=== PATIENT | female | born 1980 | race Caucasian/White ===

== ENCOUNTER → 2019-12-25 08:22 | Outpatient (BNVA) | payer OTHER, SELFPAY | PROVIDERS: PCP Family Medicine Geriatric Medicine; Visit Provider Dietitian, Registered | DX: Z76.89 Persons encountering health services in other specified circumstances (principal) ==

== ENCOUNTER → 2020-05-31 08:07 | Outpatient (BNVA) | payer OTHER, SELFPAY | PROVIDERS: PCP Family Medicine Geriatric Medicine; Visit Provider Physician Assistant ==

== ENCOUNTER → 2020-08-30 08:12 | Outpatient (BNVA) | payer OTHER, SELFPAY | PROVIDERS: PCP Family Medicine Geriatric Medicine; Visit Provider Physician Assistant ==

== ENCOUNTER 2020-12-11 07:49 | Outpatient (REF) | payer OTHER, SELFPAY ==
[2020-12-11 07:57] LABS: MANUAL DIFF FLAG NO
[2020-12-11 08:38] LABS: Basophils Percent Auto 0.7 % (0-2); Eosinophils Absolute Auto 0.1 X10*3/uL (0.0-0.4); Hematocrit 40.2 % (37-47); Imm Gran Abs Auto 0.01 X10*3/uL (0.00-0.03); Imm Gran Pct Auto 0.2 % (0.0-0.4); Lymphocytes Absolute Auto 2.9 X10*3/uL (1.2-4.9); Lymphocytes Percent Auto 52.1 % (20-40); Mean Corpuscular HGB Conc 32.3 g/dl (31.0-35.0); Mean Corpuscular Hemoglobin 26.4 pg (27.0-33.0); Mean Corpuscular Volume 81.7 fL (80-98); Mean Platelet Volume 10.3 fL (9.4-12.3); Monocytes Absolute Auto 0.2 X10*3/uL (0.1-1.2); Monocytes Percent Auto 4.3 % (2-11); Neutrophils Absolute Auto 2.3 X10*3/uL (2.0-8.3); Neutrophils Percent Auto 40.7 % (45-73); Platelet Count 257 X10*3/uL (160-400); Red Blood Count 4.92 X10*6/uL (4.20-5.50); Red Cell Distribution Width 13.2 % (11.0-16.0); White Blood Count 5.6 X10*3/uL (4.8-10.8)
[2020-12-11 09:02] LABS: Alanine Aminotransferase 26 U/L (0-31); Alkaline Phosphatase 61 U/L (39-117); Anion Gap 6 (12-20); Aspartate Amino Transferase 14 U/L (5-31); Bilirubin Total 0.7 mg/dL (0.0-1.0); Blood Urea Nitrogen 14 mg/dL (9-16); C Reactive Protein 0.07 mg/dL (< or = 0.50); Carbon Dioxide 30 mmol/L (22-29); Chloride 109 mmol/L (96-108); Cholesterol 189 mg/dL; Estimated Glomerular Filt Rate > 60; Glucose Random 88 mg/dL (60-115); HDL Cholesterol 61 mg/dL; LDL Cholesterol Calculated 115 mg/dl; Potassium 4.1 mmol/L (3.3-5.1); Sodium 141 mmol/L (135-145); Total Protein 6.4 g/dL (6.5-8.0); Triglycerides 65 mg/dL
[2020-12-11 09:17] LABS: Iron 127 mcg/dL (30-160); Percent Iron Saturation 49 % (15-50); Total Iron Binding Capacity 257 mcg/dL (228-428); Unsaturated Iron Binding 130 ug/dL
[2020-12-11 09:20] LABS: Ferritin 312 ng/mL (10-122); TSH reflex Free T4 1.33 uIU/mL (0.32-4.0); Vitamin D 25-OH Total 75.2 ng/mL (>30)
[2020-12-11 09:45] LABS: Estimated Average Glucose 91 mg/dL; Hemoglobin A1c % 4.8 %
[2020-12-11 10:07] LABS: Folate > 20.0 ng/mL (> or = 4.0); Vitamin B12 1296 pg/mL (200-900)
[2020-12-12 16:46] LABS: PTHI 56 pg/mL (14-64)
[2020-12-15 15:47] LABS: Zinc 77 mcg/dL (60-130)
[2020-12-16 12:22] LABS: Vitamin B1 28 nmol/L (8-30)
[2020-12-16 18:57] LABS: Vitamin A 50 mcg/dL (38-98)
== END 2020-12-11 07:50 | disposition home or self-care (01) ==
LOC: HO.LAB 07:49
PROVIDERS: Visit Provider Physician Assistant
DX: E66.3 Overweight (principal); Z98.84 Bariatric surgery status
CPT/HCPCS: 36415; 80053; 80061; 82306; 82607; 82728; 82746; 83036; 83540; 83970; 84425; 84443; 84590; 84630; 85025; 86140

== ENCOUNTER 2024-12-15 09:28 | Outpatient (REF) | payer OTHER, SELFPAY ==
--- OUTSIDE RECORDS SUMMARY | 2024-03-22 09:15 | XMS_ITS ---
Author Organization [facility] [address] Address [address] [place] [address] Care Team Providers Care Lab Support Tech Name Role Phone JULIANNA AUSTIN Unavailable [phone] Christiana Taylor Unavailable [phone] REASON FOR VISIT HTN Medications Medication SIG (Take, Route, Frequency, Duration) Notes Start Date End Date Status NIFEdipine ER 30 MG 1 tablet on an empty stomach Orally Once a day; Duration: 90 days Active Bariatric Multivitamins/Iron - as directed Orally A ctive Calcium 500 MG 1 tablet with meals Orally Twice a day Active Encounters Encounter Location Date Provider Diagnosis [facility] [address] [facility] [address] [place] [address] 03/22/2024 Christiana Taylor Plan Of Treatment Next Appt Details Provider Name:Snow vang, 12/20/2024 03:00:00 PM, [address] [facility], [facility] [address], [address], Provider Name:JULIANNA AUSTIN, 01/16/2025 10:00:00 AM, [address] [facility], [facility] [address], [address], Progress Notes * ZHEN RANDALL ÁNGELADOB: 1980 (43 yo F)Acc No.[id number]:03/22/2024 Progress Notes Patient: ZHEN MCKEON Provider: Bing Taylor PA-C :1980 A ge:43 Y S ex:Female Date:03/22/2024 Address:[address] [place] [address], [address] [place] [address], [place] [address] Subjective: * Chief Complaints: * 1 . HTN. * Medical History: * Medications: T aking NIFEdipine ER 30 MG Tablet Extended Release 24 Hour 1 tablet on an empty stomach Orally Once a day , Taking Bariatric Multivitamins/Iron - Capsule as directed Orally , Taking Calcium 500 MG Tablet 1 tablet with meals Orally Twice a day Objective: * Vitals: Assessment: Plan: * Treatment: * Images: Billing Information: * Visit Code: * Procedure Codes: Care Plan Details* * Electronic signature of Christiana Taylor PA-C on 12/15/2024 at 10:36 AM EDT Sign off status: Pending * Provider: Bing Taylor PA-C Date: 0 03/22/2024 Generated for Laith craft/Dary/Leon on: 1 10:36 AM EDT
--- OUTSIDE RECORDS SUMMARY | 2024-05-11 05:30 | XMS_ITS ---
Author Organization [facility] [address] Address [address] [place] [address] Care Team Providers Care Process Specialist Name Role Phone SHAMARCarloz JULIANNA Unavailable [phone] Medications Medication SIG (Take, Route, Fr equency, Duration) Notes Start Date End Date Status Labetalol HCl 100 MG 1 tablet Orally Twi ce a day; Duration: 30 days Active NIFEdipine ER 90 MG 1 tablet on an empty stomach Orally Once a day; Duration: 90 days Active Encounters Encounter Location Date Provider Diagnosis [facility] [address] [address] 05/11/2024 JULIANNA AUSTIN Essential (primary) hypertension I10 ; Hyperlipidemia, unspecified hyperlipidemia type E78.5 ; Family history of breast cancer Z80.3 ; Other obesity due to excess calories E66.09 ; Body mass index [BMI] 30.0-30.9, adult Z68.30 and Anxiety disorder, unspecified F41.9 Assessments Encounter Date Diagnosis (ICD Code) Assessment Notes Treatment Notes Treatment Clinical Notes Section Notes 05/11/2024 Essential (primary) hypertension (ICD-10 - I10) Acute Concerns/Problem List: 05/11/2024 Continue monitoring blood pressure at home For now can come off of antihypertensives in the interim Will continue monitoring Discussed obesity BMI, discussed weight loss options Currently breast-feeding and at some point would want to come in for weight management formal consultation Will update labs and follow-up later this week Reviewed with patient the importance of medication and treatment plan compliance with BP goal of less then 140/90 per JNC 8 guidelines based on patient's age. This will ensure optimal health outcomes and prevent target organ damage. Made aware that uncontrolled hypertension may be silent and result in a stroke, heart attack, renal failure or even . Discussed the rationale for individualized medication regimen and the effects of their BP. Instructed to seek emergent care if the patient develops a headache, blurry vision, dizziness, chest pain or pressure. Of note, some information is being carried forward from prior records for informational purposes only and is being cited so that efficiency, safety and quality of the patient's care is not compromised This note was prepared using voice recognition software and direct typing Please excuse inadvertent payroll officer or typing errors, or uncorrected word substitutions Although every attempt has been made by the provider to proofread this document, occasional misspellings and typographical errors may still be present Due to the previous pandemic, and the use of personal protective equipment (PPE) This may decrease voice recognition accuracy Inadvertent payroll officer errors may occur 05/11/2024 Hyperlipidemia, unspecified hyperlipidemia type (ICD-10 - E78.5) Acute Concerns/Problem List: 05/11/2024 Continue monitoring blood pressure at home For now can come off of antihypertensives in the interim Will continue monitoring Discussed obesity BMI, discussed weight loss options Currently breast-feeding and at some point would want to come in for weight management formal consultation Will update labs and follow-up later this week Reviewed with patient the importance of medication and treatment plan compliance with BP goal of less then 140/90 per JNC 8 guidelines based on patient's age. This will ensure optimal health outcomes and prevent target organ damage. Made aware that uncontrolled hypertension may be silent and result in a stroke, heart attack, renal failure or even . Discussed the rationale for individualized medication regimen and the effects of their BP. Instructed to seek emergent care if the patient develops a headache, blurry vision, dizziness, chest pain or pressure. Of note, some information is being carried forward from prior records for informational purposes only and is being cited so that efficiency, safety and quality of the patient's care is not compromised This note was prepared using voice recognition software and direct typing Please excuse inadvertent payroll officer or typing errors, or uncorrected word substitutions Although every attempt has been made by the provider to proofread this document, occasional misspellings and typographical errors may still be present Due to the previous pandemic, and the use of personal protective equipment (PPE) This may decrease voice recognition accuracy Inadvertent payroll officer errors may occur 05/11/2024 Family history of breast cancer (ICD-10 - Z80.3) Acute Concerns/Problem List: 05/11/2024 Continue monitoring blood pressure at home For now can come off of antihypertensives in the interim Will continue monitoring Discussed obesity BMI, discussed weight loss options Currently breast-feeding and at some point would want to come in for weight management formal consultation Will update labs and follow-up later this week Reviewed with patient the importance of medication and treatment plan compliance with BP goal of less then 140/90 per JNC 8 guidelines based on patient's age. This will ensure optimal health outcomes and prevent target organ damage. Made aware that uncontrolled hypertension may be silent and result in a stroke, heart attack, renal failure or even . Discussed the rationale for individualized medication regimen and the effects of their BP. Instructed to seek emergent care if the patient develops a headache, blurry vision, dizziness, chest pain or pressure. Of note, some information is being carried forward from prior records for informational purposes only and is being cited so that efficiency, safety and quality of the patient's care is not compromised This note was prepared using voice recognition software and direct typing Please excuse inadvertent payroll officer or typing errors, or uncorrected word substitutions Although every attempt has been made by the provider to proofread this document, occasional misspellings and typographical errors may still be present Due to the previous pandemic, and the use of personal protective equipment (PPE) This may decrease voice recognition accuracy Inadvertent payroll officer errors may occur 05/11/2024 Other obesity due to excess calories (ICD-10 - E66.09) Acute Concerns/Problem List: 05/11/2024 Continue monitoring blood pressure at home For now can come off of antihypertensives in the interim Will continue monitoring Discussed obesity BMI, discussed weight loss options Currently breast-feeding and at some point would want to come in for weight management formal consultation Will update labs and follow-up later this week Reviewed with patient the importance of medication and treatment plan compliance with BP goal of less then 140/90 per JNC 8 guidelines based on patient's age. This will ensure optimal health outcomes and prevent target organ damage. Made aware that uncontrolled hypertension may be silent and result in a stroke, heart attack, renal failure or even . Discussed the rationale for individualized medication regimen and the effects of their BP. Instructed to seek emergent care if the patient develops a headache, blurry vision, dizziness, chest pain or pressure. Of note, some information is being carried forward from prior records for informational purposes only and is being cited so that efficiency, safety and quality of the patient's care is not compromised This note was prepared using voice recognition software and direct typing Please excuse inadvertent payroll officer or typing errors, or uncorrected word substitutions Although every attempt has been made by the provider to proofread this document, occasional misspellings and typographical errors may still be present Due to the previous pandemic, and the use of personal protective equipment (PPE) This may decrease voice recognition accuracy Inadvertent payroll officer errors may occur 05/11/2024 Body mass index [BMI] 30.0-30.9, adult (ICD-10 - Z68.30) Acute Concerns/Problem List: 05/11/2024 Continue monitoring blood pressure at home For now can come off of antihypertensives in the interim Will continue monitoring Discussed obesity BMI, discussed weight loss options Currently breast-feeding and at some point would want to come in for weight management formal consultation Will update labs and follow-up later this week Reviewed with patient the importance of medication and treatment plan compliance with BP goal of less then 140/90 per JNC 8 guidelines based on patient's age. This will ensure optimal health outcomes and prevent target organ damage. Made aware that uncontrolled hypertension may be silent and result in a stroke, heart attack, renal failure or even . Discussed the rationale for individualized medication regimen and the effects of their BP. Instructed to seek emergent care if the patient develops a headache, blurry vision, dizziness, chest pain or pressure. Of note, some information is being carried forward from prior records for informational purposes only and is being cited so that efficiency, safety and quality of the patient's care is not compromised This note was prepared using voice recognition software and direct typing Please excuse inadvertent payroll officer or typing errors, or uncorrected word substitutions Although every attempt has been made by the provider to proofread this document, occasional misspellings and typographical errors may still be present Due to the previous pandemic, and the use of personal protective equipment (PPE) This may decrease voice recognition accuracy Inadvertent payroll officer errors may occur 05/11/2024 Anxiety disorder, unspecified (ICD-10 - F41.9) Acute Concerns/Problem List: 05/11/2024 Continue monitoring blood pressure at home For now can come off of antihypertensives in the interim Will continue monitoring Discussed obesity BMI, discussed weight loss options Currently breast-feeding and at some point would want to come in for weight management formal consultation Will update labs and follow-up later this week Reviewed with patient the importance of medication and treatment plan compliance with BP goal of less then 140/90 per JNC 8 guidelines based on patient's age. This will ensure optimal health outcomes and prevent target organ damage. Made aware that uncontrolled hypertension may be silent and result in a stroke, heart attack, renal failure or even . Discussed the rationale for individualized medication regimen and the effects of their BP. Instructed to seek emergent care if the patient develops a headache, blurry vision, dizziness, chest pain or pressure. Of note, some information is being carried forward from prior records for informational purposes only and is being cited so that efficiency, safety and quality of the patient's care is not compromised This note was prepared using voice recognition software and direct typing Please excuse inadvertent payroll officer or typing errors, or uncorrected word substitutions Although every attempt has been made by the provider to proofread this document, occasional misspellings and typographical errors may still be present Due to the previous pandemic, and the use of personal protective equipment (PPE) This may decrease voice recognition accuracy Inadvertent payroll officer errors may occur Plan Of Treatment Medication Medication Name Sig Start Date Stop Date Notes Labetalol HCl 100 MG 1 tablet Orally Twi ce a day; Duration: 30 days NIFEdipine ER 90 MG 1 tablet on an empty stomach Orally Once a day; Duration: 90 days Next Appt Details Provider Name:Snow vang, 12/20/2024 03:00:00 PM, [address] [facility], [address], [address], Provider Name:JULIANNA AUSTIN, 01/16/2025 10:00:00 AM, [address] [facility], [facility] [address], [place], [address], Progress Notes * PRAKASHZHEN SWANDOB: 1980 (43 yo F)Acc No.[id number]:05/11/2024 Progress Notes Patient: ZHEN MCKEON Provider: Rogers AUSTIN NP :1980 A ge:43 Y S ex:Female Date:05/11/2024 Address:[address] [place] [address] [address], [facility] Subjective: * Chief Complaints: * * HPI: C onstitutional: Patient is here today for a Chronic Disease Management Follow-up Visit Patient seen and examined. Full past medical history, social history, family history, allergies and current medications were reviewed and updated. Acute Concerns/Problem List: 05/11/2024 needs Updated labs, to go later this week She is also recently started on sertraline for anxiety* Her blood pressures have remained predominantly normotensive since then and her headache resolved after delivery. She was recently changed from nifedipine to lisinopril Self checks blood pressures at home gets anywhere in the 130s Occasionally 140 systolic Did express interest in GLP-1 for weight loss however this has to be put on hold since shes still breast feeding daughter currently 9 months old pmX of hypertension, migraines, bartholin cyst in the past requiring drainage, Gastric sleeve may 2019 @34 weeks [place] [facility] [place] with super-imposed pre-eclampsia with severe features based on a persistent headache along with elevated blood pressures and TPCR. She proceeded to have a vaginal delivery complicated by a PPH with EBL 800mL requiring Hemabate, Misoprostol and Tranexamic acid during the delivery. She has remained asymptomatic with light bleeding since then. She is s/p magnesium sulfate for seizure prophylaxis and was titrated to Nifedipine 90mg and Labetalol 200mg BID with good effect. 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 * ROS: A ll Other Systems: Review of Systems (ROS) A ll others negative except those mentioned in HPI. * Medical History: Objective: * Vitals: * Examination: G eneral Examination: GENERAL APPEARANCE: i n no acute distress, well developed, well nourished. H EAD: n ormocephalic, atraumatic. E YES: p upils equal, round, reactive to light and accommodation. E ARS: n ormal. O RAL CAVITY: m [place] moist. T HROAT: c lear. N KASI/THYROID: n kasi supple, full range of motion, no cervical lymphadenopathy. S KIN: n o suspicious lesions, warm and dry. H EART: n o murmurs, regular rate and rhythm, S1, S2 normal. L UNGS: c lear to auscultation bilaterally. A BDOMEN: n ormal, bowel sounds present, soft, nontender, nondistended. E XTREMITIES: n o clubbing, cyanosis, or edema. N EUROLOGIC: n onfocal, motor strength normal upper and lower extremities, sensory exam intact. Assessment: * Assessment: 1. E ssential (primary) hypertension - I10 2 . H yperlipidemia, unspecified hyperlipidemia type - E78.5 3 . F amily history of breast cancer - Z80.3 ? 4 . O ther obesity due to excess calories - E66.09 5 . B [place] mass index [BMI] 30.0-30.9, adult - Z68.30 6 . A nxiety disorder, unspecified - F41.9? Acute Concerns/Problem List: 05/11/2024 Continue monitoring blood pressure at home For now can come off of antihypertensives in the interim Will continue monitoring Discussed obesity BMI, discussed weight loss options Currently breast-feeding and at some point would want to come in for weight management formal consultation Will update labs and follow-up later this week Reviewed with patient the importance of medication and treatment plan compliance with BP goal of less then 140/90 per JNC 8 guidelines based on patient's age. This will ensure optimal health outcomes and prevent target organ damage. Made aware that uncontrolled hypertension may be silent and result in a stroke, heart attack, renal failure or even . Discussed the rationale for individualized medication regimen and the effects of their BP. Instructed to seek emergent care if the patient develops a headache, blurry vision, dizziness, chest pain or pressure. Of note, some information is being carried forward from prior records for informational purposes only and is being cited so that efficiency, safety and quality of the patient's care is not compromised This note was prepared using voice recognition software and direct typing Please excuse inadvertent payroll officer or typing errors, or uncorrected word substitutions Although every attempt has been made by the provider to proofread this document, occasional misspellings and typographical errors may still be present Due to the previous pandemic, and the use of personal protective equipment (PPE) This may decrease voice recognition accuracy Inadvertent payroll officer errors may occur. Plan: * Treatment: * Images: Billing Information: * Visit Code: * Procedure Codes: Care Plan Details* * Electronic signature of INDIRA AUSTIN on 12/15/2024 at 10:36 AM EDT Sign off status: Pending * Provider: Rogers AUSTIN NP Date: 0 05/11/2024 Generated for Laith craft/Dary/Leon on: 10:36 AM EDT History and Physical Notes * HPI (History of Present Illness) Category Sub-Category Detail Notes Category Not es Constitutional Patient is here today for a Chronic Disease Management Follow-up Visit Patient seen and examined. Full past medical history, social history, family history, allergies and current medications were reviewed and updated. Acute Concerns/Problem List: 05/11/2024 needs Updated labs, to go later this week She is also recently started on sertraline for anxiety* Her blood pressures have remained predominantly normotensive since then and her headache resolved after delivery. She was recently changed from nifedipine to lisinopril Self checks blood pressures at home gets anywhere in the 130s Occasionally 140 systolic Did express interest in GLP-1 for weight loss however this has to be put on hold since shes still breast feeding daughter currently 9 months old pmX of hypertension, migraines, bartholin cyst in the past requiring drainage, Gastric sleeve may 2019 @34 weeks [place] [facility] [place] with super-imposed pre-eclampsia with severe features based on a persistent headache along with elevated blood pressures and TPCR. She proceeded to have a vaginal delivery complicated by a PPH with EBL 800mL requiring Hemabate, Misoprostol and Tranexamic acid during the delivery. She has remained asymptomatic with light bleeding since then. She is s/p magnesium sulfate for seizure prophylaxis and was titrated to Nifedipine 90mg and Labetalol 200mg BID with good effect. 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 ETOH , 3 drinks a week no tobacco use no recr THC Examination Category Sub-Category Detail Notes Category Not es General Examination GENERAL APPEARANCE: in no ac [place] distress, well developed, well nourished HEAD: normocephalic, atrau matic EYES: pupils equal, round, reactive to light and accommodation EARS: normal THROAT: clear NECK/THYROID: neck supple, full ra nge of motion, no cervical lymphadenopathy HEART: no murmurs, regular rate and rhythm, S1, S2 normal LUNGS: clear to auscultatio n bilaterally ABDOMEN: normal, bowel sounds present, soft, nontender, nondistended NEUROLOGIC: nonfocal, motor stre ngth normal upper and lower extremities, sensory exam intact SKIN: no suspicious lesion s, warm and dry EXTREMITIES: no clubbing, cyanosi s, or edema ORAL CAVITY: mucosa moist
--- OUTSIDE RECORDS SUMMARY | 2024-12-12 10:00 | XMS_ITS ---
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 Name Role Phone JULIANNA AUSTIN Unavailable [phone] Holly Snow Unavailable [phone] Allergies No Known Allergies REASON FOR VISIT Patient is in office for urgent visit due still experiencing sharp pain and shortness of breathe, wants to be seen., states it is getting worse Medications Medication SIG (Take, Route, Frequency, Duration) Notes Start Date End Date Status Bariatric Multivitamins/Iron - as directed Orally A ctive PARoxetine HCl 20 MG 1 tablet in the mor emilie Orally Once a day Active Calcium 500 MG 1 tablet with meals Orally Twice a day Active Pantoprazole Sodium 40 MG 1 tablet 1/2 t o 1 hour before morning meal Orally Once a day; Duration: 30 days 12/12/2024 Active Labetalol HCl 100 MG 1 tablet Orally Twi ce a day; Duration: 30 days Active Sertraline HCl 25 MG 1 tablet Orally Onc e a day; Duration: 30 days 03/22/2024 Not-Takin g Lisinopril 10 MG 1 tablet Orally Once a day; Duration: 90 days 03/22/2024 Active NIFEdipine ER 90 MG 1 tablet on an empty stomach Orally Once a day; Duration: 90 days Active Social History Tobacco Use: Social History Observation Description Date Details (start date - stop date) Former Smoker NA - NA Tobacco Use/Smoking Question Answer Notes Are you a former smoker How long has it been since you last smoked? 5-10 years Problems Problem Type SNOMED Code ICD Code Onset Dates Problem Status W/U Status Risk Notes Problem Cyst of uterine adnexa (437872018954 00) Adnexal cyst (N94.9) Active confirmed Problem S/P gastric sleeve procedure (Z90.3) Active confirmed Problem Abnormal blood pressure (39857777) Encounter for examination of blood pressure with abnormal findings (Z01.31) Active confirmed Vital Signs Heart Rate 68 /min 12/12/2024 Blood pressure systolic 140 mm Hg 12/13/19 25 Blood pressure diastolic 90 mm Hg 025 Weight 194.1 lbs 12/12/2024 BMI 33.31 kg/m2 12/12/2024 Height 64 in 12/12/2024 Oximetry 99 % 12/12/2024 Encounters Encounter Location Date Provider Diagnosis [facility] [address] [place] [address] 12/12/2024 Snow Normoyle Epigastric pain R10. 13 ; Chronic constipation K59.09 ; Nausea R11.0 ; Adnexal cyst N94.9 ; S/P gastric sleeve procedure Z90.3 and Encounter for examination of blood pressure with abnormal findings Z01.31 Assessments Encounter Date Diagnosis (ICD Code) Assessment Notes Treatment Notes Treatment Clinical Notes Section Notes 12/12/2024 Epigastric pain (ICD-10 - R10.13) Zhen is a 43-year-old female with past medical history of gastric sleeve surgery in 2019 who presents for urgent visit regarding ongoing abdominal pain. CBC, CMP, UA, test, ESR, CRP unremarkable. CT abdomen/pelvis with contrast in the ED 12/07/2024 shows moderate colonic stool retention without obstruction with incidental simple fluid density cyst in the left adnexa measuring up to 3.5 cm. Bariatric surgery was consulted who stated pain is likely due to constipation and was safe for discharge. #Epigastric pain: Today, patient reports worsening pain. She states pain is sharp, burning epigastric pain worse with food, with associated nausea. She has been utilizing omeprazole and Tums daily with no relief. Denies vomiting, hematochezia, hematemesis, weight loss. During our visit, she got a call from [facility] where she previously had gastric sleeve done and was advised to text the portal regarding her symptoms. Advised patient to follow-up with [facility] for likely endoscopy for further evaluation. Differential includes hiatal hernia, ulcer, gastritis, constipation. Informed patient to call the office if symptoms worsen, and to report to the ER if she develops hematemesis or black tarry stool. Plan for pantoprazole 40 mg daily. #Constipation: Continue Colace daily and MiraLAX twice daily. Consider Linzess in the future once abdominal pain improves. #Left adnexal cyst: Found incidentally on CT abdomen/pelvis 12/07/2024. Measuring up to 3.4 cm. Consider transvaginal ultrasound in the future after abdominal pain is addressed. All questions have been answered to patient's satisfaction. Patient verbalized understanding of diagnosis and treatments explained. Advised to call sooner prior to next visit it any questions/concerns arise. Case discussed with collaborating physician Nirav Dinh who reviewed the assessment and plan. Chart, medications, labs, vital signs reviewed. Dictation was accomplished with the use of [employer] voice recognition software, which is prone to medical misidentifications and grammatical errors. This are unintentional and the practitioner does try to identify and correct these, but some could still be present. Please do not hesitate to contact practitioner for clarification. 12/12/2024 Chronic constipation (ICD-10 - K59.09) Zhen is a 43-year-old female with past medical history of gastric sleeve surgery in 2019 who presents for urgent visit regarding ongoing abdominal pain. CBC, CMP, UA, test, ESR, CRP unremarkable. CT abdomen/pelvis with contrast in the ED 12/07/2024 shows moderate colonic stool retention without obstruction with incidental simple fluid density cyst in the left adnexa measuring up to 3.5 cm. Bariatric surgery was consulted who stated pain is likely due to constipation and was safe for discharge. #Epigastric pain: Today, patient reports worsening pain. She states pain is sharp, burning epigastric pain worse with food, with associated nausea. She has been utilizing omeprazole and Tums daily with no relief. Denies vomiting, hematochezia, hematemesis, weight loss. During our visit, she got a call from [facility] where she previously had gastric sleeve done and was advised to text the portal regarding her symptoms. Advised patient to follow-up with [facility] for likely endoscopy for further evaluation. Differential includes hiatal hernia, ulcer, gastritis, constipation. Informed patient to call the office if symptoms worsen, and to report to the ER if she develops hematemesis or black tarry stool. Plan for pantoprazole 40 mg daily. #Constipation: Continue Colace daily and MiraLAX twice daily. Consider Linzess in the future once abdominal pain improves. #Left adnexal cyst: Found incidentally on CT abdomen/pelvis 12/07/2024. Measuring up to 3.4 cm. Consider transvaginal ultrasound in the future after abdominal pain is addressed. All questions have been answered to patient's satisfaction. Patient verbalized understanding of diagnosis and treatments explained. Advised to call sooner prior to next visit it any questions/concerns arise. Case discussed with collaborating physician Nirav Dinh who reviewed the assessment and plan. Chart, medications, labs, vital signs reviewed. Dictation was accomplished with the use of [employer] voice recognition software, which is prone to medical misidentifications and grammatical errors. This are unintentional and the practitioner does try to identify and correct these, but some could still be present. Please do not hesitate to contact practitioner for clarification. 12/12/2024 Nausea (ICD-10 - R11.0) Zhen is a 43-year-old female with past medical history of gastric sleeve surgery in 2019 who presents for urgent visit regarding ongoing abdominal pain. CBC, CMP, UA, test, ESR, CRP unremarkable. CT abdomen/pelvis with contrast in the ED 12/07/2024 shows moderate colonic stool retention without obstruction with incidental simple fluid density cyst in the left adnexa measuring up to 3.5 cm. Bariatric surgery was consulted who stated pain is likely due to constipation and was safe for discharge. #Epigastric pain: Today, patient reports worsening pain. She states pain is sharp, burning epigastric pain worse with food, with associated nausea. She has been utilizing omeprazole and Tums daily with no relief. Denies vomiting, hematochezia, hematemesis, weight loss. During our visit, she got a call from [facility] where she previously had gastric sleeve done and was advised to text the portal regarding her symptoms. Advised patient to follow-up with [facility] for likely endoscopy for further evaluation. Differential includes hiatal hernia, ulcer, gastritis, constipation. Informed patient to call the office if symptoms worsen, and to report to the ER if she develops hematemesis or black tarry stool. Plan for pantoprazole 40 mg daily. #Constipation: Continue Colace daily and MiraLAX twice daily. Consider Linzess in the future once abdominal pain improves. #Left adnexal cyst: Found incidentally on CT abdomen/pelvis 12/07/2024. Measuring up to 3.4 cm. Consider transvaginal ultrasound in the future after abdominal pain is addressed. All questions have been answered to patient's satisfaction. Patient verbalized understanding of diagnosis and treatments explained. Advised to call sooner prior to next visit it any questions/concerns arise. Case discussed with collaborating physician Nirav Dinh who reviewed the assessment and plan. Chart, medications, labs, vital signs reviewed. Dictation was accomplished with the use of [employer] voice recognition software, which is prone to medical misidentifications and grammatical errors. This are unintentional and the practitioner does try to identify and correct these, but some could still be present. Please do not hesitate to contact practitioner for clarification. 12/12/2024 Adnexal cyst (ICD-10 - N94.9) Zhen is a 43-year-old female with past medical history of gastric sleeve surgery in 2019 who presents for urgent visit regarding ongoing abdominal pain. CBC, CMP, UA, test, ESR, CRP unremarkable. CT abdomen/pelvis with contrast in the ED 12/07/2024 shows moderate colonic stool retention without obstruction with incidental simple fluid density cyst in the left adnexa measuring up to 3.5 cm. Bariatric surgery was consulted who stated pain is likely due to constipation and was safe for discharge. #Epigastric pain: Today, patient reports worsening pain. She states pain is sharp, burning epigastric pain worse with food, with associated nausea. She has been utilizing omeprazole and Tums daily with no relief. Denies vomiting, hematochezia, hematemesis, weight loss. During our visit, she got a call from [facility] where she previously had gastric sleeve done and was advised to text the portal regarding her symptoms. Advised patient to follow-up with [facility] for likely endoscopy for further evaluation. Differential includes hiatal hernia, ulcer, gastritis, constipation. Informed patient to call the office if symptoms worsen, and to report to the ER if she develops hematemesis or black tarry stool. Plan for pantoprazole 40 mg daily. #Constipation: Continue Colace daily and MiraLAX twice daily. Consider Linzess in the future once abdominal pain improves. #Left adnexal cyst: Found incidentally on CT abdomen/pelvis 12/07/2024. Measuring up to 3.4 cm. Consider transvaginal ultrasound in the future after abdominal pain is addressed. All questions have been answered to patient's satisfaction. Patient verbalized understanding of diagnosis and treatments explained. Advised to call sooner prior to next visit it any questions/concerns arise. Case discussed with collaborating physician Nirav Dinh who reviewed the assessment and plan. Chart, medications, labs, vital signs reviewed. Dictation was accomplished with the use of [employer] voice recognition software, which is prone to medical misidentifications and grammatical errors. This are unintentional and the practitioner does try to identify and correct these, but some could still be present. Please do not hesitate to contact practitioner for clarification. 12/12/2024 S/P gastric sleeve procedure (ICD-10 - Z90.3) Zhen is a 43-year-old female with past medical history of gastric sleeve surgery in 2019 who presents for urgent visit regarding ongoing abdominal pain. CBC, CMP, UA, test, ESR, CRP unremarkable. CT abdomen/pelvis with contrast in the ED 12/07/2024 shows moderate colonic stool retention without obstruction with incidental simple fluid density cyst in the left adnexa measuring up to 3.5 cm. Bariatric surgery was consulted who stated pain is likely due to constipation and was safe for discharge. #Epigastric pain: Today, patient reports worsening pain. She states pain is sharp, burning epigastric pain worse with food, with associated nausea. She has been utilizing omeprazole and Tums daily with no relief. Denies vomiting, hematochezia, hematemesis, weight loss. During our visit, she got a call from [facility] where she previously had gastric sleeve done and was advised to text the portal regarding her symptoms. Advised patient to follow-up with [facility] for likely endoscopy for further evaluation. Differential includes hiatal hernia, ulcer, gastritis, constipation. Informed patient to call the office if symptoms worsen, and to report to the ER if she develops hematemesis or black tarry stool. Plan for pantoprazole 40 mg daily. #Constipation: Continue Colace daily and MiraLAX twice daily. Consider Linzess in the future once abdominal pain improves. #Left adnexal cyst: Found incidentally on CT abdomen/pelvis 12/07/2024. Measuring up to 3.4 cm. Consider transvaginal ultrasound in the future after abdominal pain is addressed. All questions have been answered to patient's satisfaction. Patient verbalized understanding of diagnosis and treatments explained. Advised to call sooner prior to next visit it any questions/concerns arise. Case discussed with collaborating physician Nirav Dinh who reviewed the assessment and plan. Chart, medications, labs, vital signs reviewed. Dictation was accomplished with the use of [employer] voice recognition software, which is prone to medical misidentifications and grammatical errors. This are unintentional and the practitioner does try to identify and correct these, but some could still be present. Please do not hesitate to contact practitioner for clarification. 12/12/2024 Encounter for examination of blood pressure with abnormal findings (ICD-10 - Z01.31) Zhen is a 43-year-old female with past medical history of gastric sleeve surgery in 2019 who presents for urgent visit regarding ongoing abdominal pain. CBC, CMP, UA, test, ESR, CRP unremarkable. CT abdomen/pelvis with contrast in the ED 12/07/2024 shows moderate colonic stool retention without obstruction with incidental simple fluid density cyst in the left adnexa measuring up to 3.5 cm. Bariatric surgery was consulted who stated pain is likely due to constipation and was safe for discharge. #Epigastric pain: Today, patient reports worsening pain. She states pain is sharp, burning epigastric pain worse with food, with associated nausea. She has been utilizing omeprazole and Tums daily with no relief. Denies vomiting, hematochezia, hematemesis, weight loss. During our visit, she got a call from [facility] where she previously had gastric sleeve done and was advised to text the portal regarding her symptoms. Advised patient to follow-up with [facility] for likely endoscopy for further evaluation. Differential includes hiatal hernia, ulcer, gastritis, constipation. Informed patient to call the office if symptoms worsen, and to report to the ER if she develops hematemesis or black tarry stool. Plan for pantoprazole 40 mg daily. #Constipation: Continue Colace daily and MiraLAX twice daily. Consider Linzess in the future once abdominal pain improves. #Left adnexal cyst: Found incidentally on CT abdomen/pelvis 12/07/2024. Measuring up to 3.4 cm. Consider transvaginal ultrasound in the future after abdominal pain is addressed. All questions have been answered to patient's satisfaction. Patient verbalized understanding of diagnosis and treatments explained. Advised to call sooner prior to next visit it any questions/concerns arise. Case discussed with collaborating physician Nirav Dinh who reviewed the assessment and plan. Chart, medications, labs, vital signs reviewed. Dictation was accomplished with the use of [employer] voice recognition software, which is prone to medical misidentifications and grammatical errors. This are unintentional and the practitioner does try to identify and correct these, but some could still be present. Please do not hesitate to contact practitioner for clarification. Plan Of Treatment Medication Medication Name Sig Start Date Stop Date Notes Pantoprazole Sodium 40 MG 1 tablet 1/2 t o 1 hour before morning meal Orally Once a day; Duration: 30 days 12/12/2024 Next Appt Details Provider Name:Snow vang, 12/20/2024 03:00:00 PM, [address] [facility], [place] [address], [place], [address], Provider Name:JULIANNA AUSTIN, 01/16/2025 10:00:00 AM, [address] [facility], [facility] [address], [place], [address], Progress Notes * ZHEN RANDALL ÁNGELADOB: 1980 (43 yo F)Acc No.[id number]:12/12/2024 Progress Notes Patient: ZHEN MCKEON Provider: Danae Barrera PA-C :1980 A ge:43 Y S ex:Female Date:12/12/2024 Address:[address] [place] [address], [address], [facility] Subjective: * Chief Complaints: * 1 . Patient is in office for urgent visit due still experiencing sharp pain and shortness of breathe, wants to be seen., states it is getting worse. * HPI: C onstitutional: Zhen is a 43-year-old female with past medical history of obesity s/p gastric sleeve surgery in 2019 who presents for urgent visit regarding ongoing abdominal pain. She was seen initially 12/06/2024 due to abdominal pain worse in the left lower quadrant and constipation intermittently for 1 week. During this visit, CBC, CMP, UA, test, ESR and CRP were ordered and overall unremarkable despite UA with several abnormalities likely contamination with an adequate sample. C T abdomen and pelvis was ordered. She then called the office 12/07/2024 due to worsening pain, shortness of breath, and associated lower back pain. She was advised to report to the ED to expedite imaging. She went to the ED 12/07/2024. CT abdomen/pelvis with contrast showed moderate colonic stool retention without obstruction. No urolithiasis, fluid collection, abscess, gallbladder pathology, hydronephrosis. A simple fluid density cyst in the left adnexa measuring up to 3.4 cm was found. Bariatric surgery was consulted which stated pain is likely due to constipation and was safe for discharge. Today, she reports worsening pain. She states she has sharp, burning epigastric pain. She states symptoms are worse with food. She has associated nausea. She has been utilizing omeprazole and Tums daily with no relief. She also has been taking Colace daily and MiraLAX twice daily for constipation, she most recently had a bowel movement today. Reports improvement in constipation but now has sharp burning epigastric pain. Denies vomiting, hematochezia, hematuria, vaginal discharge. * ROS: A ll Other Systems: Review of Systems (ROS) A ll others negative except those mentioned in HPI. * Medical History: H eadache, Hemorrhoids, Anxiety, Depression, Weight gain/loss. * Surgical History: g astric bypass . * Hospitalization/Major Diagno stic Procedure: D enies Past Hospitalization. * Family History: F ather: alive. M other: alive. * Social History: T obacco Use: T obacco Use/Smoking A re you a f ormer smoker, H ow long has it been since you last smoked? 5 -10 years. * Medications: T aking NIFEdipine ER 90 MG Tablet Extended Release 24 Hour 1 tablet on an empty stomach Orally Once a day , Taking Labetalol HCl 100 MG Tablet 1 tablet Orally Twice a day , Taking PARoxetine HCl 20 MG Tablet 1 tablet in the morning Orally Once a day , Taking Bariatric Multivitamins/Iron - Capsule as directed Orally , Taking Calcium 500 MG Tablet 1 tablet with meals Orally Twice a day , Taking Lisinopril 10 MG Tablet 1 tablet Orally Once a day , Not-Taking Sertraline HCl 25 MG Tablet 1 tablet Orally Once a day , Medication List reviewed and reconciled with the patient * Allergies: N .K.D.A. Objective: * Vitals: H R:68/min, BP:140/90mm Hg, Wt:194.1lbs, BMI:33.31Index, Ht: 64 in, Oxygen sat %:99%. * Physical Examination: G eneral: Well appearing, well nourished, age appropriate in no acute distress. Speaking in full, clear sentences. SKIN: Warm, dry intact. No rashes/lesions. HEENT: Normocephalic atraumatic. LUNGS: Clear to auscultation bilaterally, no wheezes, rales or rhonchi CARDIAC: Regular rate and rhythm, no murmurs, rubs or gallops. Abdomen: Soft, nondistended. Hypoactive bowel sounds. Diffusely tender on palpation, increasingly tender in the epigastric region. Negative Phelan sign, negative Rovsing. Extremities: Warm and well perfused. No edema noted. Neuro: CN II-XI grossly intact. Speaking in full sentences. Hearing intact. Assessment: * Assessment: 1. E pigastric pain - R10.13 (Primary) 2 . C hronic constipation - K59.09? 3. N ausea - R11.0 4 . A dnexal cyst - N94.9 ?5. S /P gastric sleeve procedure - Z90.3 6 . E ncounter for examination of blood pressure with abnormal findings - Z01.31 Zhen is a 43-year-old fema le with past medical history of gastric sleeve surgery in 2019 who presents for urgent visit regarding ongoing abdominal pain. CBC, CMP, UA, test, ESR, CRP unremarkable. CT abdomen/pelvis with contrast in the ED 12/07/2024 shows moderate colonic stool retention without obstruction with incidental simple fluid density cyst in the left adnexa measuring up to 3.5 cm. Bariatric surgery was consulted who stated pain is likely due to constipation and was safe for discharge. #Epigastric pain: Today, patient reports worsening pain. She states pain is sharp, burning epigastric pain worse with food, with associated nausea. She has been utilizing omeprazole and Tums daily with no relief. Denies vomiting, hematochezia, hematemesis, weight loss. During our visit, she got a call from [facility] where she previously had gastric sleeve done and was advised to text the portal regarding her symptoms. Advised patient to follow-up with [facility] for likely endoscopy for further evaluation. Differential includes hiatal hernia, ulcer, gastritis, constipation. Informed patient to call the office if symptoms worsen, and to report to the ER if she develops hematemesis or black tarry stool. Plan for pantoprazole 40 mg daily. #Constipation: Continue Colace daily and MiraLAX twice daily. Consider Linzess in the future once abdominal pain improves. #Left adnexal cyst: Found incidentally on CT abdomen/pelvis 12/07/2024. Measuring up to 3.4 cm. Consider transvaginal ultrasound in the future after abdominal pain is addressed. All questions have been answered to patient's satisfaction. Patient verbalized understanding of diagnosis and treatments explained. Advised to call sooner prior to next visit it any questions/concerns arise. Case discussed with collaborating physician Nirav Dinh who reviewed the assessment and plan. Chart, medications, labs, vital signs reviewed. Dictation was accomplished with the use of [employer] voice recognition software, which is prone to medical misidentifications and grammatical errors. This are unintentional and the practitioner does try to identify and correct these, but some could still be present. Please do not hesitate to contact practitioner for clarification. Plan: * Treatment: * Procedure Codes: 3 077F SYST BP = 140 MM HG6 IT, 3080F DIAST BP = 90 MM HG Care Plan: * Problems: * Images: Billing Information: * Visit Code: 18161 Office Visit, Est Pt., Level 4. Modifiers: SA * Procedure Codes: 3077F SYST BP = 140 MM HG6 IT. 3080F DIAST BP = 90 MM HG. Care Plan Details* * Sign off status: Completed true * Provider: Danae Barrera PA-C Date: Generated for Laith craft/Dary/Nicanoritting on: 10:35 AM EDT History and Physical Notes * HPI (History of Present Illness) Category Sub-Category Detail Notes Category Not es Constitutional Zhen is a 43-year-old female with past medical history of obesity s/p gastric sleeve surgery in 2019 who presents for urgent visit regarding ongoing abdominal pain. She was seen initially 12/06/2024 due to abdominal pain worse in the left lower quadrant and constipation intermittently for 1 week. During this visit, CBC, CMP, UA, test, ESR and CRP were ordered and overall unremarkable despite UA with several abnormalities likely contamination with an adequate sample. CT abdomen and pelvis was ordered. She then called the office 12/07/2024 due to worsening pain, shortness of breath, and associated lower back pain. She was advised to report to the ED to expedite imaging. She went to the ED 12/07/2024. CT abdomen/pelvis with contrast showed moderate colonic stool retention without obstruction. No urolithiasis, fluid collection, abscess, gallbladder pathology, hydronephrosis. A simple fluid density cyst in the left adnexa measuring up to 3.4 cm was found. Bariatric surgery was consulted which stated pain is likely due to constipation and was safe for discharge. Today, she reports worsening pain. She states she has sharp, burning epigastric pain. She states symptoms are worse with food. She has associated nausea. She has been utilizing omeprazole and Tums daily with no relief. She also has been taking Colace daily and MiraLAX twice daily for constipation, she most recently had a bowel movement today. Reports improvement in constipation but now has sharp burning epigastric pain. Denies vomiting, hematochezia, hematuria, vaginal discharge Physical Examination Category Sub-Category Detail Notes Section Note s General: Well appearing, well nourished, age appropriate in no acute distress. Speaking in full, clear sentences. SKIN: Warm, dry intact. No rashes/lesions. HEENT: Normocephalic atraumatic. LUNGS: Clear to auscultation bilaterally, no wheezes, rales or rhonchi CARDIAC: Regular rate and rhythm, no murmurs, rubs or gallops. Abdomen: Soft, nondistended. Hypoactive bowel sounds. Diffusely tender on palpation, increasingly tender in the epigastric region. Negative Phelan sign, negative Rovsing. Extremities: Warm and well perfused. No edema noted. Neuro: CN II-XI grossly intact. Speaking in full sentences. Hearing intact.
--- NOTE | ~2024-12-15 | US_ITS ---
EXAMINATION: US ABDOMEN COMPLETE WITH LIVER ELASTOGRAPHY HISTORY: R10.9 - Unspecified abdominal pain TECHNIQUE: Real-time grayscale ultrasound imaging of the abdomen was performed and images were reviewed. COMPARISON: Comparison is made with the prior examination dated 03/13/2019. FINDINGS: Liver: The right lobe of the liver measures 16.5 cm in size. The left lobe of the liver measures 13.2 cm in size. The liver demonstrates normal homogeneous echotexture. No focal mass or intrahepatic biliary ductal dilatation is identified. There is normal hepatopedal flow in the portal vein. Ultrasound elastography of the liver was performed with 10 separate measurements of the liver parenchyma with the patient in the supine position. Measurements were obtained approximately 2 cm below Theo's capsule and perpendicular to the capsule. The median shear wave velocity is 1.09 m/s (previously 1.19 m/s).. The interquartile range/median (IQR/median) is 0.17. Gallbladder and biliary tree: The gallbladder is unremarkable, without evidence of calculi, wall thickening, or pericholecystic fluid. There is no sonographic Phelan sign. The common bile duct is normal in caliber measuring 2 mm. Kidneys: The right kidney measures 11.1 cm in length. The left kidney measures 11.2 cm in length. The kidneys are unremarkable, without evidence of masses, hydronephrosis, or calculi. Pancreas: The pancreatic head, neck, and body are unremarkable. The pancreatic tail is obscured by bowel gas. Spleen: The spleen is normal in size and contour, measuring 9.9 cm in length. Abdominal aorta and inferior vena cava: The visualized portions of the abdominal aorta and inferior vena cava are normal in caliber. There is no free fluid in the abdomen. US/US abdomen comp w elastography IMPRESSION: Hepatomegaly. Otherwise unremarkable abdominal ultrasound. The median shear wave velocity in the liver is 1.09 m/s, corresponding to a median liver stiffness of 3.6 kPa. The IQR/median value is 0.17. This is indicative of a quality data set. Findings are indicative of a normal elastography value with a low likelihood of severe fibrosis or cirrhosis. REFERENCE: Society [employer] in Ultrasound Liver Stiffness Thresholds (2019): LIVER STIFFNESS THRESHOLDS: *Shear wave velocity less than 1.3 m/s (Liver Stiffness equal or less than 5 kPa): High probability of being normal. *Shear wave velocity less than 1.7 m/s (Liver Stiffness less than 9 kPa): In the absence of other known clinical signs, rules out compensated advanced chronic liver disease. *Shear wave velocity between 1.7-2.1 m/s (Liver Stiffness 9-13 kPa): Suggestive of compensated advanced chronic liver disease but need further test for confirmation. *Shear wave velocity between 2.1-2.4 m/s (Liver Stiffness 13-17 kPa): Rules in compensated advanced chronic liver disease. *Shear wave velocity greater than 2.4 m/s (Liver Stiffness over 17 kPa): Suggestive of clinically significant portal hypertension. QUALITY OF DATA SET: *IQR/Median value equal or less than 0.30 implies a quality data set. *IQR/Median value over 0.30 implies a poor quality data set. SIGNIFICANT CHANGE FROM PRIOR EXAM: Significant change if liver stiffness measurement is 10% or greater from prior exam. OTHER CONSIDERATIONS: The stage of liver fibrosis may be overestimated in the setting of acute hepatitis, liver inflammation, elevated liver function tests, hepatic vascular congestion, obstructive cholestasis, non-fasting state, and infiltrative diseases such as amyloidosis and lymphoma. In some patients with NAFLD, the liver stiffness thresholds for compensated advanced chronic liver disease may be lower. In causes other than viral hepatitis and NAFLD, liver stiffness thresholds are not well established. Electronically signed by: Jorje Schultz MD 12/15/2024 10:27 AM EDT
--- OUTSIDE RECORDS SUMMARY | 2024-12-15 10:36 | XMS_ITS | Clinical Summary ---
Author Organization [facility] [address] [facility] Building Address [address] [facility] [place] [address] Phone Care Team Providers Care Kitchen Lead Name Role Phone Vignesh Dinh MD Primary Care Provider [phone] Allergies No known active allergies Medications calcium citrate (CALCITRATE) 1200 mg (250 mg elemental calcium) tablet Take by mouth. Active NIFEdipine CC (ADALAT CC) 60 mg 24 hr tablet 04/07/2022 Act kirit traZODone (DESYREL) 50 mg tablet 1/2-2 qhs 02/09/2019 Active magnesium citrate 100 mg capsule Take by mouth. Active CHOLECALCIFEROL, VITAMIN D3, ORAL Take by mouth. Active multivitamin (MULTIPLE VITAMINS ORAL) Take by mouth. Active vitamin ( Multivitamins) iron fum-folic acid 28-0.8 mg per tablet Take by mouth. 11/01/2010 Active Hospital, Clinic, or Other Facility Administered Medication Ordered Dose Route Frequency Start Date End Date Status levonorgestreL (MIRENA) 21 mcg/24hr (up to 8 yrs) 52 mg IUDIndications:Encounter for insertion of intrauterine contraceptive device (IUD) utrn Once 01/18/2024 Active Active Problems Problem Noted Date Diagnosed Date Bartholin cyst 01/06/2022 Overview (12/13/2023): Last Assessment & Plan: Patient counseled on treatment options. After consent was obtained I&D performed, tolerated well by patient. She was given post-procedure instructions and reviewed s/sx of infection and reasons to call. All questions answered. PTSD (post-traumatic stress disorder) 11/09/2018 Encounters Date Type Department Care Team Description 11/06/2024 10:37 AM EDT - 11/06/2024 11:59 PM EDT [facility] [address] [address] Encounter for screening mammogram for malignant neoplasm of breast Discharge Disposition: Home or Self Care from Last 3 Months Immunizations Immunization Administration Dates Next Due Influenza trivalent, with pr eservative (Fluzone; Afluria) 6mo and older 01/01/2011,12/27/2006 Meningococcal Polysaccharide 05/08/2002 Surgical History Surgery Date Site/Laterality Comments NOSE SURGERY PROCEDURE: DE UNLISTED PROCEDURE NOSE; COMMENT: cauterization OTHER SURGICAL HISTORY PROCEDURE: ---- OTHER ----; COMMENT: neck cyst removed, wrist cyst removed Medical History Medical History Date Comments Ovarian cyst DX:Ovarian cyst Right ovarian cyst 05/04/2013 DX:Right ovar vineet cyst; COMMENT: Seen ER 05/02/13, 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 Family History Medical History Relation Name Comments Diabetes Maternal Grandmother mat aun t Other: dvt Mother Other: embolism Sister cardiac Colon cancer Neg Hx Ovarian cancer Neg Hx Uterine cancer Neg Hx Relation Name Status Comments Brother Alive Father Alive Maternal Grandmother Mother Alive Sister Alive Social History Tobacco Use Types Packs/Day Years Used Date Smoking Tobacco: Former Cigarettes Q uit: 07/27/2006 Smokeless Tobacco: Never Tobacco Cessation:Counseling Given: Not Answered Alcohol Use Standard Drinks/Week Comments Yes 0 (1 standard drink = 0.6 oz pur e alcohol) Comments No Sex and Gender Information Value Date Recorded Sex Assigned at Not on file Legal Sex Female 9:01 PM EST Gender Identity Not on file Sexual Orientation Not on file Obstetrics History * This document contains information received from the source organization and may not represent a complete record from that organization. Para Term AB IAB SAB Ectopic Multiple Livin g Live Births 4 2 2 2 2 Date Outcome GA Total Labor Labor/2nd/3rd Weight Sex Type Anes PTL Jamila A1 A5 Name Clin 2007 Term 40w 0d 3345 g (118 oz) M Vag-S pont None Livin g Brett Delivery Location:[facility] 2011 Term 37w 1d 2948 g (104 oz) F Vag-S pont Local Livin g 9 9 Elyssa Delivery Location:[facility] Comments:induction for PIH Last Filed Vital Signs Vital Sign Reading Time Taken Comments Blood Pressure 125/90 07/06/2024 9:31 AM EDT Pulse 93 07/06/2024 9:31 AM EDT Temperature 37.1 C (98.7 F) 07/05/2024 3:10 AM EDT Respiratory Rate 12 07/06/2024 9:31 AM EDT Oxygen Saturation 100% 07/05/2024 3:10 AM EDT Inhaled Oxygen Concentration - - Weight 85.3 kg (188 lb) 07/06/2024 9:31 AM EDT Height 160 cm (5' 3 ) 07/06/2024 9:31 AM EDT Body Mass Index 33.3 07/06/2024 9:31 AM EDT Plan of Treatment Health Maintenance Due Date Last Done Comments Hepatitis B Vaccines (1 of 3 - 19+ 3-dose series) 2000 HPV Vaccines (1 - 3-dose SCDM series) 2008 Cholesterol Screening (Lipid Panel) 01/31/2022 Hepatitis C Screening 01/31/2022 Social Influencers of Health Screening 01/31/2022 Depression Screening 03/01/2024 COVID-19 Vaccine (2024- season) 2024 02/01/2021 Influenza Vaccine (#1) 2024 , 02/19/2022, 11/25/2020, Additional history exists Hypertension/CHF/CAD Annual BMP Blood Test 12/06/2025 12/06/2024, 07/04/2024 Cervical Cancer Screening: HPV 02/12/2026 02/12/2021 Breast Cancer Screening 11/06/2026 11/07/19 25, 06/10/2023, 01/03/2021, Additional history exists DTaP,Tdap,and Td Vaccines (2 - Td or Tdap) 01/04/2033 01/04/2023 RSV Immunization Adult Patients (1 - 1-dose 75+ series) 2056 Meningococcal ACWY Vaccine Aged Out 05/08/2002 N o longer eligible based on patient's age to complete this topic HIV Screening Completed 12/04/2010 HIB Vaccines Aged Out No longer eligi ble based on patient's age to complete this topic Hepatitis A Vaccines Aged Out No long er eligible based on patient's age to complete this topic IPV Vaccines Aged Out No longer eligi ble based on patient's age to complete this topic MMR Vaccines Aged Out No longer eligi ble based on patient's age to complete this topic Meningococcal B Vaccine Aged Out No l onger eligible based on patient's age to complete this topic Pneumococcal Vaccine: Pediatrics (0 to 5 Years) and At-Risk Patients (6 to 49 Years) Aged Out No longer eligible based on patient's age to complete this topic RSV Immunization Patients Under 20 months Aged Out No longer eligible based on patient's age to complete this topic Varicella Vaccines Aged Out No longer eligible based on patient's age to complete this topic Procedures Procedure Name Priority Date/Time Associated Diagnosis Comments URINALYSIS WITH REFLEX MICROSCOPIC Routine 12/06/2024 9:34 AM EDT Routine general medical examination at a [facility] Abdominal pain, left lower quadrant HCG QUALITATIVE, URINE Routine 9:34 AM EDT Routine general medical examination at a [facility] facility Abdominal pain, left lower quadrant Abdominal pain URINALYSIS WITH REFLEX MICROSCOPIC Routine 12/06/2024 9:34 AM EDT Routine general medical examination at a [facility] facility Abdominal pain, left lower quadrant CBC WITH AUTO DIFFERENTIAL Routine 12/06/2024 9:24 AM EDT Routine general medical examination at a [facility] Abdominal pain, left lower quadrant C REACTIVE PROTEIN, HIGH SENSITIVITY Routine 12/06/2024 9:24 AM EDT Routine general medical examination at a [facility] Abdominal pain, left lower quadrant SEDIMENTATION RATE Routine 12/06/2024 9: 24 AM EDT Routine general medical examination at a [facility] facility Abdominal pain, left lower quadrant COMPREHENSIVE METABOLIC PANEL Routine 12/06/2024 9:24 AM EDT Routine general medical examination at a health care facility Abdominal pain, left lower quadrant CBC AND DIFFERENTIAL Routine 12/06/2024 9:24 AM EDT Routine general medical examination at a health care facility Abdominal pain, left lower quadrant MG MAMMO DIGITAL SCREENING W REI BILAT Routine 11/06/2024 10:55 AM EDT Encounter for screening mammogram for malignant neoplasm of breast HPV Routine 02/12/2021 HIV SCREENING Routine 12/04/2010 from Last 3 Months or Most Recently Relevant to Health Maintenance Results * (ABNORMAL) Urinalysis with reflex microscopic (12/06/2024 9:34 AM EDT) Specific [place] Urine 1.022 1.003 - 1.030 LAB URINALYSIS - AUTOMATED METHOD 12/06/2024 10:[address] [facility] pH, Urine 8.0 5.0 - 8.0 pH LAB URINALYSIS - AUTOMATED METHOD 12/06/2024 10:[address] [facility] Leukocytes, Urine Small(A) Negative LAB URINALYSIS - AUTOMATED METHOD 12/06/2024 10:[address] [facility] Nitrite, Urine Negative Negative LAB URINALYSIS - AUTOMATED METHOD 12/06/2024 10:[address] [facility] Protein, Urine 30(A) <=Trace mg/dL LAB URINALYSIS - AUTOMATED METHOD 12/06/2024 10:[address] [facility] Glucose, Urine Negative Negative mg/dL LAB URINALYSIS - AUTOMATED METHOD 12/06/2024 10:[address] [facility] Ketones, Urine Trace(A) Negative mg/dL LAB URINALYSIS - AUTOMATED METHOD 12/06/2024 10:[address] [facility] Urobilinogen , Urine 1.0 0.2 - 1.0 mg/dL LAB URINALYSIS - AUTOMATED METHOD 12/06/2024 10:[address] [facility] Bilirubin, Urine Negative Negative LAB URINALYSIS - AUTOMATED METHOD 12/06/2024 10:[address] [facility] Blood, Urine Negative Negative LAB URINALYSIS - AUTOMATED METHOD 12/06/2024 10:[address] [facility] RBC, Urine 2.8 0 - 4 /HPF LAB URINALYSIS - AUTOMATED METHOD 12/06/2024 10:[address] [facility] WBC, Urine 16.6(H) 0 - 4 /HPF LAB URINALYSIS - AUTOMATED METHOD 12/06/2024 10:[address] [facility] Squamous Epithelial, Urine >100(H) 0 - 60 /LPF LAB URINALYSIS - AUTOMATED METHOD 12/06/2024 10:[address] [facility] Bacteria, Urine Moderate(A) Negative /HPF LAB URINALYSIS - AUTOMATED METHOD 12/06/2024 10:[address] [facility] Hyaline Casts, Urine 0.4 0 - 3 /LPF LAB URINALYSIS - AUTOMATED METHOD 12/06/2024 10:[address] [facility] Urine Urine specimen obtained by clean catch procedure / Unknown Non-blood Collection / Unknown 12/06/2024 9:34 AM EDT 12/06/2024 10:04 AM EDT us [facility] URINE ORDERABLES Final R esult [facility] [address] [place] [address], * HCG qualitative, urine (12/06/2024 9:34 AM EDT) Preg Test, Ur Negative Negative 12/06/2024 10:22 AM EDT [facility] Urine Urine specimen obtained by clean catch procedure / Unknown Non-blood Collection / Unknown 12/06/2024 9:34 AM EDT 12/06/2024 10:04 AM EDT [facility] URINE ORDERABLES Final R esult [facility] [address] [place] [address], * (ABNORMAL) CBC auto differential (12/06/2024 9:24 AM EDT) WBC 8.3 4.8 - 10.8 K/mcL LAB HEMETOLOGY METHOD 12/06/2024 10:[address] [facility] RBC 5.20(H) 3.80 - 4.80 M/mcL LAB HEMETOLOGY METHOD 12/06/2024 10:[address] [facility] Hemoglobin 13.5 11.5 - 16.0 g/dL LAB HEMETOLOGY METHOD 12/06/2024 10:[address] [facility] Hematocrit 43.3 35.0 - 47.0 % LAB HEMETOLOGY METHOD 12/06/2024 10:[address] [facility] MCV 83.9 79.0 - 98.0 FL LAB HEMETOLOGY METHOD 12/06/2024 10:[address] [facility] MCH 26.2(L) 27.0 - 32.0 pcg LAB HEMETOLOGY METHOD 12/06/2024 10:[address] [facility] MCHC 31.2(L) 32.0 - 37.0 g/dL LAB HEMETOLOGY METHOD 12/06/2024 10:[address] [facility] RDW 14.0 11.0 - 15.0 % LAB HEMETOLOGY METHOD 12/06/2024 10:[address] [facility] Platelets 291 130 - 400 K/mcL LAB HEMETOLOGY METHOD 12/06/2024 10:[address] [facility] MPV 10.0 7.0 - 11.0 FL LAB HEMETOLOGY METHOD 12/06/2024 10:[address] [facility] NRBC 0.0 <1.0 % LAB HEMETOLOGY METHOD 12/06/2024 10:[address] [facility] NRBC Absolute 0.00 <0.10 K/mcL LAB HEMETOLOGY METHOD 12/06/2024 10:[address] [facility] Neutrophils Relative 61.7 % LAB HEMETOLOGY METHOD 12/06/2024 10:[address] [facility] Lymphocytes Relative 30.9 % LAB HEMETOLOGY METHOD 12/06/2024 10:[address] [facility] Monocytes Relative 5.7 % LAB HEMETOLOGY METHOD 12/06/2024 10:[address] [facility] Eosinophils Relative 1.0 % LAB HEMETOLOGY METHOD 12/06/2024 10:[address] [facility] Basophils Relative 0.5 % LAB HEMETOLOGY METHOD 12/06/2024 10:[address] [facility] Immature Granulocytes Relative 0.2 % LAB HEMETOLOGY METHOD 12/06/2024 10:[address] [facility] Neutrophils Absolute 5.11 1.50 - 7.00 K/mcL LAB HEMETOLOGY METHOD 12/06/2024 10:[address] [facility] Lymphocytes Absolute 2.56 1.00 - 5.00 K/mcL LAB HEMETOLOGY METHOD 12/06/2024 10:[address] [facility] Monocytes Absolute 0.47 0.20 - 1.00 K/mcL LAB HEMETOLOGY METHOD 12/06/2024 10:[address] [facility] Eosinophils Absolute 0.08 0.00 - 0.50 K/[facility] LAB HEMETOLOGY METHOD 12/06/2024 10:18 AM EDT [facility] Basophils Absolute 0.04 0.00 - 0.20 K/[facility] LAB HEMETOLOGY METHOD 12/06/2024 10:18 AM EDT [facility] Immature Granulocytes Absolute 0.02 0.00 - 0.03 K/[facility] LAB HEMETOLOGY METHOD 12/06/2024 10:18 AM EDT [facility] Blood Venous blood specimen / Unknown Venipuncture / Unknown 12/06/2024 9:24 AM EDT 12/06/2024 10:05 AM EDT Snow Normoyle PA LAB BLOOD ORDERABLES Final R esult Performing Organization Address City/[facility]/ZIP Co de Phone Number [facility] [address] [place] [address], [place] [phone] * Sedimentation rate (12/06/2024 9:24 AM EDT) Sed Rate 12 0 - 20 mm/hr LAB HEMETOLOGY METHOD 12/06/2024 10:30 AM EDT [facility] Blood Venous blood specimen / Unknown Venipuncture / Unknown 12/06/2024 9:24 AM EDT 12/06/2024 10:05 AM EDT Snow Normoyle PA LAB BLOOD ORDERABLES Final R esult [facility] [address] [place] [address], [place] [phone] * C reactive protein, high sensitivity (12/06/2024 9:24 AM EDT) CRP, High Sensitivity 4.34 mg/L LAB CHEMISTRY METHOD 12/06/2024 11:13 AM EDT [facility] Comment: Cardio CRP Relative Risk Categories Low <1.0 mg/L Average 1.0 - 3.0 mg/L High >3.0 mg/L Levels >10.0 mg/L should be ignored and repeated when the patient is stable and infection or inflammation is ruled out. HRT (estrogens) consistently increase cardio CRP levels. Risk estimates for women on HRT may need to be calibrated downward. Blood Venous blood specimen / Unknown Venipuncture / Unknown 12/06/2024 9:24 AM EDT 12/06/2024 10:04 AM EDT us [facility] BLOOD ORDERABLES Final R esult [facility] [address] [place] [address], [place] [phone] * Comprehensive metabolic panel (12/06/2024 9:24 AM EDT) Sodium 137 133 - 145 mmol/L LAB CHEMISTRY METHOD 12/06/2024 11:[address] [facility] Potassium 4.3 3.5 - 5.5 mmol/L LAB CHEMISTRY METHOD 12/06/2024 11:[address] [facility] Chloride 105 96 - 110 mmol/L LAB CHEMISTRY METHOD 12/06/2024 11:[address] [facility] CO2 26 21 - 32 mmol/L LAB CHEMISTRY METHOD 12/06/2024 11:[address] [facility] Anion Gap 6 3 - 11 LAB CHEMISTRY METHOD 12/06/2024 11:[address] [facility] Glucose 93 70 - 100 mg/dL LAB CHEMISTRY METHOD 12/06/2024 11:[address] [facility] BUN 16 5 - 25 mg/dL LAB CHEMISTRY METHOD 12/06/2024 11:[address] [facility] Creatinine 0.70 0.50 - 1.10 mg/dL LAB CHEMISTRY METHOD 12/06/2024 11:[address] [facility] eGFR 111 >=60 mL/min/1. 73m2 LAB CHEMISTRY METHOD 12/06/2024 11:[address] [facility] Comment:Calculation based on the Chronic Kidney Disease Epidemiology Collaboration (CKD-EPI) equation refit without adjustment for race. BUN/Creatinine Ratio 22.9 LAB CHEMISTRY METHOD 12/06/2024 11:[address] [facility] Calcium 9.4 8.5 - 10.5 mg/dL LAB CHEMISTRY METHOD 12/06/2024 11:[address] [facility] AST (SGOT) 21 10 - 42 unit/L LAB CHEMISTRY METHOD 12/06/2024 11:[address] [facility] ALT (SGPT) 25 10 - 60 unit/L LAB CHEMISTRY METHOD 12/06/2024 11:[address] [facility] Alkaline Phosphatase 85 42 - 121 unit/L LAB CHEMISTRY METHOD 12/06/2024 11:[address] [facility] Total Protein 7.2 6.0 - 8.0 g/dL LAB CHEMISTRY METHOD 12/06/2024 11:[address] [facility] Albumin 3.6 3.2 - 5.0 g/dL LAB CHEMISTRY METHOD 12/06/2024 11:[address] [facility] Total Bilirubin 0.4 0.0 - 1.4 mg/dL LAB CHEMISTRY METHOD 12/06/2024 11:[address] [facility] Blood Venous blood specimen / Unknown Venipuncture / Unknown 12/06/2024 9:24 AM EDT 12/06/2024 10:04 AM EDT [facility] BLOOD ORDERABLES Final R esult [facility] [address] [place] [address], [place] [phone] * MG Mammo Digital Screening w Rei bilat (11/06/2024 10:55 AM EDT) Anatomical Region Laterality Modality Breast Bilateral Mammography 11/06/2024 11:0 3 AM EDT Impressions 11/06/2024 11:08 AM EDT No mammographic evidence of malignancy. A negative mammogram in the presence of a clinically suspicious palpable abnormality does not preclude the possibility of malignancy or alter the indications for biopsy. PQRI CPT II 3342F Code 06204, 95464 PQRI 225 CPT II 7025F TISSUE DENSITY: There are scattered areas of fibroglandular density. (BI-RADS category B) IMPRESSION: Benign. BI-RADS CATEGORY: 2 - BENIGN RECOMMENDATION: Screening bilateral mammogram is recommended in 1 year. Mammo Location: [facility], [address] [place] [address] -------- FINAL REPORT -------- Dictated By: Ab Ibarra Dictated Date: 11/06/2024 11:03 ET Assigned Physician: Ab Ibarra Reviewed and Electronically Signed By: Ab Ibarra Signed Date: 11/06/2024 11:08 ET Workstation ID: [id number] Transcribed By: Self Edit Transcribed Date: 11/06/2024 11:03 ET Narrative 11/06/2024 11:08 AM EDT CLINICAL: The patient is a 43 years Female presenting for routine screening mammography. COMPARISON: 06/10/2023 and most remotely 05/09/2018. TECHNIQUE: Full-field digital mammography of the breasts bilaterally consisting of tomosynthesis in MLO and CC projection is performed in the [employer] 2000-D unit. Computer aided detection utilizing the iCAD system was utilized. FINDINGS: The breasts are again seen to be composed of a combination of fatty and fibroglandular elements. Scattered bilateral calcifications, some of which are dermal, are stable. There is no suspicious cluster of microcalcifications, mass, or area of architectural distortion. There is no skin thickening or nipple retraction. Procedure Note Ab Ibarra MD - 11/06/2024 CLINICAL: The patient is a 43 years Female presenting for routinescreening mammography. COMPARISON: 06/10/2023 and most remotely 05/09/2018. TECHNIQUE: Full-field digital mammography of the breasts bilaterallyconsisting of tomosynthesis in MLO and CC projection is performed in the[employer] 2000-D unit. Computer aided detection utilizing the [employer] was utilized. FINDINGS: The breasts are again seen to be composed of a combination offatty and fibroglandular elements. Scattered bilateral calcifications,some of which are dermal, are stable. There is no suspicious cluster ofmicrocalcifications, mass, or area of architectural distortion. There isno skin thickening or nipple retraction. IMPRESSION: No mammographic evidence of malignancy. A negative mammogram in the presence of a clinically suspicious palpableabnormality does not preclude the possibility of malignancy or alter theindications for biopsy. PQRI CPT II 3342F Code 05485, 92274 PQRI 225 CPT II 7025F TISSUE DENSITY: There are scattered areas of fibroglandular density.(BI-RADS category B) IMPRESSION: Benign. BI-RADS CATEGORY: 2 - BENIGN RECOMMENDATION: Screening bilateral mammogram is recommended in 1 year. Mammo Location: [facility], [address] [place] [address] -------- FINAL REPORT -------- Dictated By: Ab Ibarra Dictated Date: 11/06/2024 11:03 ET Assigned Physician: Ab Ibarra Reviewed and Electronically Signed By: Ab Ibarra Signed Date: 11/06/2024 11:08 ET Workstation ID: [id number] Transcribed By: Self Edit Transcribed Date: 11/06/2024 11:03 ET Sammi Wang CLOTH PAINTER IMG BI PROCEDURES Final Resul t * Cervical Cancer Screening: HPV (02/12/2021) Pathologist [facility] Cervical Cancer Screening: HPV No interpretation with Negative, abstracted Historical Provider HEALTH MAINTENANCE Final Result * HIV Screening (12/04/2010) Pathologist [facility] HIV Screening Abstracted Historical Provider HEALTH MAINTENANCE Final Result from Last 3 Months or Most Recently Relevant to Health Maintenance Insurance [facility] Care Teams Kitchen Lead Relationship Specialty Start Date End Date Vignesh Dinh MD [address] [place] [id number] PCP - General Internal Medicine 07/04/24
--- OUTSIDE RECORDS SUMMARY | 2024-12-15 10:36 | XMS_ITS | Patient Health Record ---
Author Organization [facility] [address] Address [address] [place] [address] Care Team Providers Care Control Operator Name Role Phone JULIANNA AUSTIN Unavailable [phone] Giana Gomez Unavailable [phone] OLIVIA PAN Unavailable [phone] NormSnow george Unavailable [phone] Allergies No Known Allergies Results Component Value Reference Range Notes XR KNEE 4+ VIEWS RIGHT Reviewed date:02/16/2024 08:06:04 AM Interpretation: Performing Lab: Notes/Report: Note See Note [facility], a member of [employer] Patient Name: ANGELA RANDALL Date of : 1980 Reason for Exam: acute pain of right knee Exam Date: 02/08/2024 [id number] EST Report Status: Final Ordering Provider: GIANA GOMEZ PCP: CAITLIN DINH HISTORY: The patient is a 43-year-old female with right knee pain, nontraumatic. FINDINGS: AP, latera l, internal rotation, and external rotation view of the right knee are obtained. The study demonstrates no fracture, dislocation, arthritic change, or other bony abnormality. There is a small suprapatellar joint effusion. IMPRESSION: A small suprapatella r joint effusion is present. Otherwise, normal examination, without bony abnormality. Code 16083 -------- FINAL REPOR T -------- Dictated By: Ab Ibarra Dictated Date: 02/09/2024 08:05 ET Assigned Physician: Ab Ibarra Reviewed and Electronically Signed By: Ab Ibarra Signed Date: 024 08:05 ET Workstation ID: [id number] Transcribed By: Self Edit Transcribed Date: 02/09/2024 08:05 ET URINALYSIS WITH REFLEX MICRO SCOPIC Reviewed date:12/07/2024 01:40:42 PM Interpretation: Performing Lab: Notes/Report: Specific [place] Urine 1.022 1.003-1.030 pH, Urine 8.0 5.0-8.0 pH Leukocytes, Urine Small Negative Nitrite, Urine Negative Negative Protein, Urine 30 <=Trace mg/dL Glucose, Urine Negative Negative mg/dL Ketones, Urine Trace Negative mg/dL Urobilinogen, Urine 1.0 0.2-1.0 mg/dL Bilirubin, Urine Negative Negative Blood, Urine Negative Negative RBC, Urine 2.8 0-4 /HPF WBC, Urine 16.6 0-4 /HPF Squamous Epithelial, Urine >100 0-60 /LPF Bacteria, Urine Moderate Negative /HPF Hyaline Casts, Urine 0.4 0-3 /LPF CBC WITH AUTO DIFFERENTIAL Reviewed date:12/07/2024 01:40:42 PM Interpretation: Performing Lab: Notes/Report: WBC 8.3 4.8-10.8 K/mcL RBC 5.20 3.80-4.80 M/mcL Hemoglobin 13.5 11.5-16.0 g/dL Hematocrit 43.3 35.0-47.0 % MCV 83.9 79.0-98.0 FL MCH 26.2 27.0-32.0 pcg MCHC 31.2 32.0-37.0 g/dL RDW 14.0 11.0-15.0 % Platelets 291 130-400 K/mcL MPV 10.0 7.0-11.0 FL NRBC 0.0 <1.0 % NRBC Absolute 0.00 <0.10 K/mcL Neutrophils Relative 61.7 Lymphocytes Relative 30.9 Monocytes Relative 5.7 Eosinophils Relative 1.0 Basophils Relative 0.5 Immature Granulocytes Relative 0.2 Neutrophils Absolute 5.11 1.50-7.00 K/mcL Lymphocytes Absolute 2.56 1.00-5.00 K/mcL Monocytes Absolute 0.47 0.20-1.00 K/mcL Eosinophils Absolute 0.08 0.00-0.50 K/mcL Basophils Absolute 0.04 0.00-0.20 K/mcL Immature Granulocytes Absolute 0.02 0.00-0.03 K/mcL HCG QUALITATIVE, URINE Reviewed date:12/07/2024 01:40:42 PM Interpretation: Performing Lab: Notes/Report: Preg Test, Ur Negative Negative SEDIMENTATION RATE Reviewed date:12/07/2024 01:40:42 PM Interpretation: Performing Lab: Notes/Report: Sed Rate 12 0-20 mm/hr WET PREP, GENITAL Reviewed date:07/20/2024 01:30:50 PM Interpretation: Performing Lab: Notes/Report: Clue Cells, Wet Prep Negative Negative Yeast, Wet Prep Positive Negative Trichomonas, Wet Prep Indeterminate Negative Refer to Trichomonas antigen. CHLAMYDIA TRACHOMATIS AND NE ISSERIA GONORRHOEAE MOLECULAR STUDY Reviewed date:07/12/2024 09:10:12 AM Interpretation: Performing Lab: Notes/Report: Neisseria gonorrhoeae PCR Negative Negative Chlamydia trachomatis PCR Negative Negative C REACTIVE PROTEIN, HIGH SEN SITIVITY Reviewed date:12/07/2024 01:40:42 PM Interpretation: Performing Lab: Notes/Report: CRP, High Sensitivity 4.34 Cardio CRP Relative Risk Categories Low <1.0 mg/L Average 1.0 - 3.0 mg/L High >3.0 mg/L Levels >10.0 mg/L should be ignored and repeated when the patient is stable and infection or inflammation is ruled out. HRT (estrogens) consistently increase cardio CRP levels. Risk estimates for women on HRT may need to be calibrated downward. COMPREHENSIVE METABOLIC PANE L Reviewed date:12/07/2024 01:40:42 PM Interpretation: Performing Lab: Notes/Report: Sodium 137 133-145 mmol/L Potassium 4.3 3.5-5.5 mmol/L Chloride 105 96-110 mmol/L CO2 26 21-32 mmol/L Anion Gap 6 3-11 Glucose 93 70-100 mg/dL BUN 16 5-25 mg/dL Creatinine 0.70 0.50-1.10 mg/dL eGFR 111 >=60 mL/min/1.73m2 Calculati on based on the Chronic Kidney Disease Epidemiology Collaboration (CKD-EPI) equation refit without adjustment for race. BUN/Creatinine Ratio 22.9 Calcium 9.4 8.5-10.5 mg/dL AST (SGOT) 21 10-42 unit/L ALT (SGPT) 25 10-60 unit/L Alkaline Phosphatase 85 42-121 unit/L Total Protein 7.2 6.0-8.0 g/dL Albumin 3.6 3.2-5.0 g/dL Total Bilirubin 0.4 0.0-1.4 mg/dL Comp. Metabolic Panel (14)-3 Reviewed date:06/08/2024 07:41:04 AM Interpretation: Performing Lab:[facility], [address] [place] [address], Phone - [phone], Director - Alexy Notes/Report: Glucose 87 70-99 mg/dL BUN 15 6-24 mg/dL Creatinine 0.69 0.57-1.00 mg/dL eGFR 111 >59 mL/min/1.73 BUN/Creatinine Ratio 22 9-23 Sodium 142 134-144 mmol/L Potassium 4.3 3.5-5.2 mmol/L Chloride 103 96-106 mmol/L Carbon Dioxide, Total 23 20-29 mmol/L Calcium 9.5 8.7-10.2 mg/dL Protein, Total 7.0 6.0-8.5 g/dL Albumin 4.5 3.9-4.9 g/dL Globulin, Total 2.5 1.5-4.5 g/dL Bilirubin, Total 0.3 0.0-1.2 mg/dL Alkaline Phosphatase 91 44-121 IU/L AST (SGOT) 18 0-40 IU/L ALT (SGPT) 18 0-32 IU/L Lipid Panel-[id number] Reviewed date:06/08/2024 07:41:04 AM Interpretation: Performing Lab:[facility], [address] [place] [address], Phone - [phone], Director - Alexy Notes/Report: Cholesterol, Total 252 100-199 mg/dL Triglycerides 165 0-149 mg/dL HDL Cholesterol 65 >39 mg/dL VLDL Cholesterol Howie 30 5-40 mg/dL LDL Chol Calc ([facility]) 157 0-99 mg/dL Vitamin D, 09-Bodteif-[id number] Reviewed date:06/08/2024 07:41:04 AM Interpretation: Performing Lab:[facility], [address] [facility], Phone - [phone], Director - Wilfredo Notes/Report: Vitamin D, 25-Hydroxy 45.4 30.0-100.0 ng/mL Vitamin D deficiency has been defined by the National City of Medicine and an Endocrine Society practice guideline as a level of serum 25-OH vitamin D less than 20 ng/mL (1,2). The Endocrine Society went on to further define vitamin D insufficiency as a level between 21 and 29 ng/mL (2). 1. IOM (National City of Medicine). 2010. Dietary reference intakes for calcium and D. [place]: The National Academies Press. 2. Celia MF, Kelsie NC, Alba WOLFE, et al. Evaluation, treatment, and prevention of vitamin D deficiency: an Endocrine Society clinical practice guideline. JCEM. 2010; 96(7):1911-30. CBC With Differential/Platel et-[id number] Reviewed date:06/08/2024 07:41:20 AM Interpretation: Performing Lab:[facility], [address] [place] [address], Phone - [phone], Director - Wilfredo Notes/Report: WBC 8.2 3.4-10.8 x10E3/uL RBC 5.53 3.77-5.28 x10E6/uL Hemoglobin 15.0 11.1-15.9 g/dL Hematocrit 47.0 34.0-46.6 % MCV 85 79-97 fL MCH 27.1 26.6-33.0 pg MCHC 31.9 31.5-35.7 g/dL RDW 13.5 11.7-15.4 % Platelets 322 150-450 x10E3/uL Neutrophils 54 Not Estab. % Lymphs 38 Not Estab. % Monocytes 5 Not Estab. % Eos 2 Not Estab. % Basos 1 Not Estab. % Neutrophils (Absolute) 4.4 1.4-7.0 x10E3/uL Lymphs (Absolute) 3.1 0.7-3.1 x10E3/uL Monocytes(Absolute) 0.4 0.1-0.9 x10E3/uL Eos (Absolute) 0.2 0.0-0.4 x10E3/uL Baso (Absolute) 0.1 0.0-0.2 x10E3/uL Immature Granulocytes 0 Not Estab. % Immature Grans (Abs) 0.0 0.0-0.1 x10E3/uL TSH-[id number] Reviewed date:06/08/2024 07:41:04 AM Interpretation: Performing Lab:[facility] [address] [place] [address], Phone - [phone], Director - Wilfredo Notes/Report: TSH 2.040 0.450-4.500 uIU/mL Urinalysis, Complete-[id number] Reviewed date:06/08/2024 07:41:04 AM Interpretation: Performing Lab:[facility] [place], [address] [place] [address], [place], Phone - [phone], Director - Wilfredo Notes/Report: Specific [place] 1.026 1.005-1.030 pH 5.5 5.0-7.5 Urine-Color Yellow Yellow Appearance Clear Clear WBC Esterase Trace Negative Protein Trace Negative/Trace Glucose Negative Negative Ketones Negative Negative Occult Blood Negative Negative Bilirubin Negative Negative Urobilinogen,Semi-Qn 0.2 0.2-1.0 mg/dL Nitrite, Urine Negative Negative Microscopic Examination See below: Microscopic was indicated and was performed. WBC 6-10 0 - 5 /hpf RBC 0-2 0 - 2 /hpf Epithelial Cells (non renal) 0-10 0 - 10 /hpf Casts None seen None seen /lpf Bacteria Few None seen/Few Hemoglobin [id number]-[id number] Reviewed date:06/08/2024 07:41:04 AM Interpretation: Performing Lab:[facility], [address] [place] [address], Phone - [phone], Director - Wilfredo Notes/Report: Hemoglobin A1c 5.6 4.8-5.6 % . Prediabetes: 5.7 - 6.4 Diabetes: >6.4 Glycemic control for adults with diabetes: <7.0 MG MAMMO DIGITAL SCREENING W BIBIANA BILAT Reviewed date:11/06/2024 11:22:00 AM Interpretation: Performing Lab: Notes/Report: Note See Note [facility], a member of [employer] Patient Name: ANGELA RANDALL Date of : 1980 Reason for Exam: Breast cancer screen, avg risk, asymptomatic (Age => 41y) Exam Date: 11/06/2024 [id number] EST Report Status: Final Ordering Provider: JULIANNA AUSTIN PCP: CAITLIN DINH CLINICAL: The ryan t is a 43 years Female presenting for routine screening mammography. COMPARISON: and most remotely 05/09/2018. TECHNIQUE: Full-fiel d digital mammography of the breasts bilaterally consisting of tomosynthesis in MLO and CC projection is performed in the [employer] 2000-D unit. Computer aided detection utilizing the EverPower system was utilized. FINDINGS: The breast s are again seen to be composed of a combination of fatty and fibroglandular elements. Scattered bilateral calcifications, some of which are dermal, are stable. There is no suspicious cluster of microcalcifications, mass, or area of architectural distortion. There is no skin thickening or nipple retraction. IMPRESSION: No mammographic evidence of malignancy. A negative mammogram in the presence of a clinically suspicious palpable abnormality does not preclude the possibility of malignancy or alter the indications for biopsy. PQRI CPT II 3342F Code 31825, 51462 PQRI 225 CPT II 7025F TISSUE DENSITY: Ther e are scattered areas of fibroglandular density. (BI-RADS category B) IMPRESSION: Benign. BI-RADS CATEGORY: 2 - BENIGN RECOMMENDATION: Screening bilateral mammogram is recommended in 1 year. Mammo Location: [facility], [address] [place] [address] -------- FINAL REPOR T -------- Dictated By: Ab Ibarra Dictated Date: 11/06/2024 11:03 ET Assigned Physician: Ab Ibarra Reviewed and Electronically Signed By: Ab Ibarra Signed Date: 025 11:08 ET Workstation ID: [id number] Transcribed By: Self Edit Transcribed Date: 11/06/2024 11:03 ET Reason For Referral Reason Sleep Study - [facility] Diagnosis 1 Obstructive sleep ap hector (G47.33) [facility] [address] Referring Provider First Name JULIANNA Referring Provider Last Name GEOVANNA Referring Provider Speciality Internal M edicine Referred Provider Specialty Pulmonology General Notes Estella Small 10:33:47 AM > Pt given phone [phone] referral faxed to [phone] Clinical Notes Pauline Feliciano 01:19:29 PM > im faxing another referral to sleep medicine services. Pt. called and said she talked to Narda about the home sleep study. She said they charged her and she never received the test in the mail. She said today they charged her for another test. She said she read about people saying they got scammed so she wanted to go somewhere else. Ill get the new referral over to Sleep Medicine Services now. Referral Priority Routine Reason Sleep Medicine Servi linda; obstructive sleep apnea Diagnosis 1 Obstructive sleep ap hector (G47.33) Referral Organization [facility] [address] Referring Provider First Name JULIANNA Referring Provider Last Name GEOVANNA Referring Provider Speciality Internal M edicine Referred Provider Specialty Sleep Medici ne General Notes [address] [place] (p) [phone], (f) [phone] Clinical Notes Pauline Feliciano 02:12:36 PM > faxed form and notesBulmaro Redena 11/16/2024 01:15:22 PM > Seen today at 11:15 am and has an upcoming appt on 11/28 for the sleep study Referral Priority Routine Medications Medication SIG (Take, Route, Frequency, Duration) Notes Start Date End Date Status Sertraline HCl 25 MG 1 tablet Orally Onc e a day; Duration: 30 days 03/22/2024 Not-Takin g Bariatric Multivitamins/Iron - as directed Orally A ctive PARoxetine HCl 20 MG 1 tablet in the mor emilie Orally Once a day Active Lisinopril 10 MG 1 tablet Orally Once a day; Duration: 90 days 03/22/2024 Active Calcium 500 MG 1 tablet with [...] Once a day; Duration: 90 days Active Immunizations Vaccine Route Administration Date Status Comme nts influenza IM Intramuscular 11/25/2020 Administered influenza IM Intramuscular 02/19/2022 Administered Social History Tobacco Use: Social History Observation Description Date Details (start date - stop date) Former Smoker NA - NA Tobacco Use/Smoking Question Answer Notes Are you a former smoker How long has it been since you last smoked? 5-10 years Alcohol Screen (Audit-C) Question Answer Notes Did you have a drink contain ing alcohol in the past year? Yes How often did you have a dri nk containing alcohol in the past year? 2 to 3 times a week (3 points) Points 3 Interpretation Positive Problems Problem Type SNOMED Code ICD Code Onset Dates Problem Status W/U Status Risk Notes Problem Vitamin D deficiency (15241468) Vitamin D deficiency, unspecified (E55.9) Active confirmed Problem Obesity due to excess calories (598003852) Other obesity due to excess calories (E66.09) Active confirmed Problem Anxiety disorder (888112763) Anxiety disorder, unspecified (F41.9) Active confirmed Problem Essential hypertension (28787984) Essential (primary) hypertension (I10) Active confirmed Problem Abnormal blood pressure (19392431) Encounter for examination of blood pressure with abnormal findings (Z01.31) Active confirmed Problem Lipid screening (990412590) Encounter for screening for lipoid disorders (Z13.220) Active confirmed Problem Chronic idiopathic constipation (95821550) Chronic idiopathic constipation (K59.04) Active confirmed Problem Hyperlipidaemia (26650401) Hyperlipidemia, unspecified hyperlipidemia type (E78.5) Active confirmed Problem Adult health examination (658933951) Adult general medical exam (Z00.00) Active confirmed Problem Screening for malignant neoplasm of breast (545503217) Breast cancer screening by mammogram (Z12.31) Active confirmed Problem Family history of breast cancer (387647066) Family history of breast cancer (Z80.3) Active confirmed Problem Diabetes mellitus screening (565012843) Diabetes mellitus screening (Z13.1) Active confirmed Problem Obstructive sleep apnea (19474934) Obstructive sleep apnea (G47.33) Active confirmed Problem Migraine with aura (1505805) Migraine with aura and without status migrainosus, not intractable (G43.109) Active confirmed Problem BMI 30+ - obesity (754264590) BMI 32.0-32.9,adult (Z68.32) Active confirmed Problem Acute stress disorder (61491576) Stress reaction (F43.0) Active confirmed Problem Body mass index 30+ - obesity (870158711) Body mass index [BMI] 30.0-30.9, adult (Z68.30) Active confirmed Problem Avitaminosis D (92727414) Avitaminosis D (E55.9) Active confirmed Problem Pain in thoracic spine (369831571) Lower thoracic back pain (M54.6) Active confirmed Problem Endocrine/metaboli c screening (352113183) Encounter for screening for endocrine disorder (Z13.29) Active confirmed Problem Tension headache (159538201) Tension headache (G44.209) Active confirmed Problem S/P gastric sleeve procedure (Z90.3) Active confirmed Problem Cyst of uterine adnexa (09784312823155) Adnexal cyst (N94.9) Active confirmed Vital Signs Heart Rate 68 /min 12/12/2024 Blood pressure diastolic 90 mm Hg 12/12/2024 Oximetry 99 % 12/12/2024 Height 64 in 12/12/2024 Blood pressure systolic 140 mm Hg 12/12/2024 Weight 194.1 lbs 12/12/2024 BMI 33.31 kg/m2 12/12/2024 Encounters Encounter Location Date Provider Diagnosis [facility] [address] [address] 01/06/2024 OLIVIA PAN Acute sore throat J0 2.9 ; Acute cough R05.1 ; Chest congestion R09.89 and Tension headache G44.209 [facility] [address] [address] 02/08/2024 Giana Svrcek Essential (primary) hypertension I10 and Acute pain of right knee M25.561 [facility] [address] [address] 03/22/2024 Giana Svrcek Essential (primary) hypertension I10 ; Anxiety disorder, unspecified F41.9 and Depression, unspecified F32.A [facility] [address] [address] 06/12/2024 JULIANNA BORHOT Essential (primary) hypertension I10 ; Hyperlipidemia, unspecified hyperlipidemia type E78.5 ; Family history of breast cancer Z80.3 ; Other obesity due to excess calories E66.09 ; Body mass index [BMI] 30.0-30.9, adult Z68.30 ; Anxiety disorder, unspecified F41.9 and Breast cancer screening by mammogram Z12.31 [facility] [address] [address] 10/16/2024 JULIANNA BORHOT Essential (primary) hypertension I10 ; Annual physical exam Z00.00 ; Hyperlipidemia, unspecified hyperlipidemia type E78.5 ; Family history of breast cancer Z80.3 ; Other obesity due to excess calories E66.09 ; BMI 32.0-32.9,adult Z68.32 ; Anxiety disorder, unspecified F41.9 and Encounter for examination of blood pressure without abnormal findings Z01.30 [facility] [address] 12/06/2024 Snow Normoyle LLQ abdominal pain R10.32 ; Chronic idiopathic constipation K59.04 ; Nausea R11.0 and Encounter for examination of blood pressure without abnormal findings Z01.30 [facility] [address] 12/12/2024 Snow Normoyle Epigastric pain R10. 13 ; Chronic constipation K59.09 ; Nausea R11.0 ; Adnexal cyst N94.9 ; S/P gastric sleeve procedure Z90.3 and Encounter for examination of blood pressure with abnormal findings Z01.31 [facility] [address] 01/06/2024 JULIANNA BORHOT [facility] [address] 01/06/2024 JULIANNA BORHOT [facility] [address] 02/08/2024 [address]UL[address]NA [address]HOT [facility] [address] [place] [address] 02/11/2024 Giana Svrcek [facility] [address] 10/16/2024 JULIANNA BORHOT [facility] [address] [address] 10/26/2024 JULIANNA BORHOT Essential (primary) hypertension I10 [facility] [address] 12/05/2024 JULIANNA BORHOT [facility] [address] [facility] [address] [address] 12/07/2024 Snow Normoyle [facility] [address] [address] 12/12/2024 JULIANNA IBANEZCarloz Assessments Encounter Date Diagnosis (ICD Code) Assessment Notes Treatment Notes Treatment Clinical Notes Section Notes 01/06/2024 Acute cough (ICD-10 - R05.1) Angela is a 43-year-old female with history of headache, hemorrhoids, anxiety, depression who presents the office today for urgent care visit for flulike symptoms including sore throat, hoarse voice, cough, chest congestion, and headache that began on Wednesday. Reports recent sick contacts including her son who is sick 3 weeks ago with sore throat and cough as well as her partner who also became sick with similar symptoms. Reports some associated nausea but denies fever, chills, chest pain, difficulty breathing, vomiting, diarrhea, dizziness, or weakness. Can tolerate food and drink. Has been using Tylenol, throat lozenges, cough drops, and drinking warm water with honey. On physical exam patient is well-appearing and in no acute distress. Cardiopulmonary exam unremarkable. Small right-sided lymphadenopathy appreciated in submaxillary region. Oropharynx is nonerythematous and nonedematous without tonsillar hypertrophy or exudates. Viral swab obtained in the office which resulted negative for flu, COVID, and RSV. Patient updated to these results. Discussed that symptoms likely due to viral infection. Discussed use of ibuprofen for sore throat and use of medications like Robitussin to help manage cough and chest congestion. Advised the patient should avoid NyQuil or DayQuil at this time as she is breast-feeding. She should continue conservative measures including rest, continuing good nutrition, increasing fluid intake, using throat lozenges or cough drops, and having warm water or tea with honey. Advised that if symptoms do not improve the rest of the week and by the end of the weekend may consider antibiotics. May consider chest x-ray if she develops shortness of breath. Advised to return to the office sooner if she does not develop resolution of symptoms. Educated to go to the emergency department if she develops fever unable to be broken by antipyretic medications, chest pain, difficulty breathing, intractable vomiting or diarrhea, dizziness, or weakness. Patient demonstrates understanding. All patient questions answered at this time. All questions have been answered to patient's satisfaction. Patient verbalized understanding of diagnosis and treatments explained. Advised to call sooner prior to next visit it any questions/concerns arise. Case discussed with collaborating physician Nirav Dinh who reviewed the assessment and plan. Chart, medications, labs, vital signs reviewed. Dictation was accomplished with the use of [employer] voice recognition software, which is prone to medical misidentifications and grammatical errors. This are unintentional and the practitioner does try to identify and correct these, but some could still be present. Please do not hesitate to contact practitioner for clarification. 01/06/2024 Acute sore throat (ICD-10 - J02.9) Angela is a 43-year-old female with history of headache, hemorrhoids, anxiety, depression who presents the office today for urgent care visit for flulike symptoms including sore throat, hoarse voice, cough, chest congestion, and headache that began on Wednesday. Reports recent sick contacts including her son who is sick 3 weeks ago with sore throat and cough as well as her partner who also became sick with similar symptoms. Reports some associated nausea but denies fever, chills, chest pain, difficulty breathing, vomiting, diarrhea, dizziness, or weakness. Can tolerate food and drink. Has been using Tylenol, throat lozenges, cough drops, and drinking warm water with honey. On physical exam patient is well-appearing and in no acute distress. Cardiopulmonary exam unremarkable. Small right-sided lymphadenopathy appreciated in submaxillary region. Oropharynx is nonerythematous and nonedematous without tonsillar hypertrophy or exudates. Viral swab obtained in the office which resulted negative for flu, COVID, and RSV. Patient updated to these results. Discussed that symptoms likely due to viral infection. Discussed use of ibuprofen for sore throat and use of medications like Robitussin to help manage cough and chest congestion. Advised the patient should avoid NyQuil or DayQuil at this time as she is breast-feeding. She should continue conservative measures including rest, continuing good nutrition, increasing fluid intake, using throat lozenges or cough drops, and having warm water or tea with honey. Advised that if symptoms do not improve the rest of the week and by the end of the weekend may consider antibiotics. May consider chest x-ray if she develops shortness of breath. Advised to return to the office sooner if she does not develop resolution of symptoms. Educated to go to the emergency department if she develops fever unable to be broken by antipyretic medications, chest pain, difficulty breathing, intractable vomiting or diarrhea, dizziness, or weakness. Patient demonstrates understanding. All patient questions answered at this time. All questions have been answered to patient's satisfaction. Patient verbalized understanding of diagnosis and treatments explained. Advised to call sooner prior to next visit it any questions/concerns arise. Case discussed with collaborating physician Nirav Dihn who reviewed the assessment and plan. Chart, medications, labs, vital signs reviewed. Dictation was accomplished with the use of [employer] voice recognition software, which is prone to medical misidentifications and grammatical errors. This are unintentional and the practitioner does try to identify and correct these, but some could still be present. Please do not hesitate to contact practitioner for clarification. 02/08/2024 Essential (primary) hypertension (ICD-10 - I10) #Hypertension. Blood pressure quite high in the office. She has been off of her blood pressure medications for several months. Will restart nifedipine at lower dose of 30 mg. Follow-up in 4 weeks for recheck. She will also monitor at home. #Right knee pain. Right knee pain x 3 weeks without any known injury. She does have swelling to the posterior right knee. will get x-ray to further evaluate. Could consider ultrasound if needed. Discussed potential effusion/Hsu's cyst. Discussed rest ice elevation and ibuprofen 600 mg with food every 8 hours for 3 to 5 days. Follow-up if no improvement or with any new or worsening symptoms. Case discussed with collaborating physician Carloz Dinh who reviewed the assessment and plan. Chart, medications, labs, vital signs reviewed. Dictation was accomplished with the use of [employer] voice recognition software, prone to medical misidentifications and grammatical errors. This is unintentional and the practitioner does try to identify and correct these, but some could still be present. Please do not hesitate to contact practitioner for clarification. All questions answered to patients satisfaction. Patient verbalized understanding of diagnosis and treatments explained. To call sooner prior to next visit it any questions/concerns arise. 02/08/2024 Acute pain of right knee (ICD-10 - M25.561) #Hypertension. Blood pressure quite high in the office. She has been off of her blood pressure medications for several months. Will restart nifedipine at lower dose of 30 mg. Follow-up in 4 weeks for recheck. She will also monitor at home. #Right knee pain. Right knee pain x 3 weeks without any known injury. She does have swelling to the posterior right knee. will get x-ray to further evaluate. Could consider ultrasound if needed. Discussed potential effusion/Hsu's cyst. Discussed rest ice elevation and ibuprofen 600 mg with food every 8 hours for 3 to 5 days. Follow-up if no improvement or with any new or worsening symptoms. Case discussed with collaborating physician Carloz Dinh who reviewed the assessment and plan. Chart, medications, labs, vital signs reviewed. Dictation was accomplished with the use of [employer] voice recognition software, prone to medical misidentifications and grammatical errors. This is unintentional and the practitioner does try to identify and correct these, but some could still be present. Please do not hesitate to contact practitioner for clarification. All questions answered to patients satisfaction. Patient verbalized understanding of diagnosis and treatments explained. To call sooner prior to next visit it any questions/concerns arise. 03/22/2024 Anxiety disorder, unspecified (ICD-10 - F41.9) #Hypertension. Blood pressure not at goal. Goal less than 130/80. She is now done breast-feeding. Will discontinue nifedipine and start lisinopril 10 mg daily. Reviewed risk benefits adverse effects of medication in detail with patient. She is actively working on healthy diet and regular exercise. Will plan to recheck BMP in 4 to 6 weeks and follow-up in the office as scheduled in April. Follow-up sooner with any concerns. #Anxiety and depression. She has had increased anxiety since the of her daughter a year ago. She would like to try medication options at this time. Will start low-dose sertraline. Discussed may need to titrate dose. Reviewed risk benefits adverse effects to monitor for. She has a good support system at home and is actively looking for a therapist. Follow-up in 6 weeks sooner with any concerns. Case discussed with collaborating physician Carloz Dinh who reviewed the assessment and plan. Chart, medications, labs, vital signs reviewed. Dictation was accomplished with the use of [employer] voice recognition software, prone to medical misidentifications and grammatical errors. This is unintentional and the practitioner does try to identify and correct these, but some could still be present. Please do not hesitate to contact practitioner for clarification. All questions answered to patients satisfaction. Patient verbalized understanding of diagnosis and treatments explained. To call sooner prior to next visit it any questions/concerns arise. 03/22/2024 Essential (primary) hypertension (ICD-10 - I10) #Hypertension. Blood pressure not at goal. Goal less than 130/80. She is now done breast-feeding. Will discontinue nifedipine and start lisinopril 10 mg daily. Reviewed risk benefits adverse effects of medication in detail with patient. She is actively working on healthy diet and regular exercise. Will plan to recheck BMP in 4 to 6 weeks and follow-up in the office as scheduled in April. Follow-up sooner with any concerns. #Anxiety and depression. She has had increased anxiety since the of her daughter a year ago. She would like to try medication options at this time. Will start low-dose sertraline. Discussed may need to titrate dose. Reviewed risk benefits adverse effects to monitor for. She has a good support system at home and is actively looking for a therapist. Follow-up in 6 weeks sooner with any concerns. Case discussed with collaborating physician Carloz Dinh who reviewed the assessment and plan. Chart, medications, labs, vital signs reviewed. Dictation was accomplished with the use of [employer] voice recognition software, prone to medical misidentifications and grammatical errors. This is unintentional and the practitioner does try to identify and correct these, but some could still be present. Please do not hesitate to contact practitioner for clarification. All questions answered to patients satisfaction. Patient verbalized understanding of diagnosis and treatments explained. To call sooner prior to next visit it any questions/concerns arise. 06/12/2024 Essential (primary) hypertension (ICD-10 - I10) Acute Concerns/Problem List: 06/12/2024 Continue monitoring blood pressure at home Continue antihypertensive - Lisinopril Continue with psychiatric provider for anxiety/ depression Call and schedule weight loss management consult Physical exam 10/2024 _ update labs Order for mammography given to patient Discussed obesity BMI, discussed weight loss options No longer breast-feeding and at some point would want to come in for weight management formal consultation Of note, some information is being carried forward from prior records for informational purposes only and is being cited so that efficiency, safety and quality of the patient's care is not compromised This note was prepared using voice recognition software and direct typing Please excuse inadvertent vascular tech or typing errors, or uncorrected word substitutions Although every attempt has been made by the provider to proofread this document, occasional misspellings and typographical errors may still be present Due to the previous pandemic, and the use of personal protective equipment (PPE) This may decrease voice recognition accuracy Inadvertent vascular tech errors may occur 10/26/2024 Essential (primary) hypertension (ICD-10 - I10) 12/06/2024 Chronic idiopathic constipation (ICD-10 - K59.04) Nora is a 43-year-old female with past medical history significant for constipation, ovarian cyst, and gastric bypass surgery in 2019 who presents for urgent visit regarding abdominal pain, constipation, and nausea for approximately 1 week. Most recent bowel movement yesterday and was normal for her. She has been utilizing MiraLAX twice daily and Colace daily. Reports associated chills/sweats but denies fever, vomiting, hematochezia, urinary symptoms. Abdominal exam is soft, nondistended, diffusely tender, worse in left lower quadrant. Hypoactive bowel sounds. #Abdominal pain: Differential is broad, includes stool burden, IBS-C, diverticulitis, , ovarian cyst. Plan for CBC, CMP, ESR, CRP, UA, test. Plan for CT abdomen and pelvis with contrast. Patient advised to report to the ER if she develops fever or chills, presyncope, lightheadedness, or worsening abdominal pain. Plan to follow-up in 2 weeks to discuss treatment of underlying constipation, sooner as needed. #Constipation: She has been utilizing MiraLAX daily and Colace daily. Went to the ER in June due to constipation. Plan to follow-up in 2 weeks to discuss treatment, such as Linzess. All questions have been answered to patient's satisfaction. Patient verbalized understanding of diagnosis and treatments explained. Advised to call sooner prior to next visit it any questions/concerns arise. Case discussed with collaborating physician Nirav Dinh who reviewed the assessment and plan. Chart, medications, labs, vital signs reviewed. Dictation was accomplished with the use of [employer] voice recognition software, which is prone to medical misidentifications and grammatical errors. This are unintentional and the practitioner does try to identify and correct these, but some could still be present. Please do not hesitate to contact practitioner for clarification. 12/06/2024 LLQ abdominal pain (ICD-10 - R10.32) Nora is a 43-year-old female with past medical history significant for constipation, ovarian cyst, and gastric bypass surgery in 2019 who presents for urgent visit regarding abdominal pain, constipation, and nausea for approximately 1 week. Most recent bowel movement yesterday and was normal for her. She has been utilizing MiraLAX twice daily and Colace daily. Reports associated chills/sweats but denies fever, vomiting, hematochezia, urinary symptoms. Abdominal exam is soft, nondistended, diffusely tender, worse in left lower quadrant. Hypoactive bowel sounds. #Abdominal pain: Differential is broad, includes stool burden, IBS-C, diverticulitis, , ovarian cyst. Plan for CBC, CMP, ESR, CRP, UA, test. Plan for CT abdomen and pelvis with contrast. Patient advised to report to the ER if she develops fever or chills, presyncope, lightheadedness, or worsening abdominal pain. Plan to follow-up in 2 weeks to discuss treatment of underlying constipation, sooner as needed. #Constipation: She has been utilizing MiraLAX daily and Colace daily. Went to the ER in June due to constipation. Plan to follow-up in 2 weeks to discuss treatment, such as Linzess. All questions have been answered to patient's satisfaction. Patient verbalized understanding of diagnosis and treatments explained. Advised to call sooner prior to next visit it any questions/concerns arise. Case discussed with collaborating physician Nirav Dinh who reviewed the assessment and plan. Chart, medications, labs, vital signs reviewed. Dictation was accomplished with the use of [employer] voice recognition software, which is prone to medical misidentifications and grammatical errors. This are unintentional and the practitioner does try to identify and correct these, but some could still be present. Please do not hesitate to contact practitioner for clarification. 12/12/2024 Epigastric pain (ICD-10 - R10.13) Angela is a 43-year-old female with past medical [...] our visit, she got a call from [facility] where she previously had gastric sleeve done and was advised to text the portal regarding her symptoms. Advised patient to follow-up with [facility] for likely endoscopy for further evaluation. Differential [...] Dictation was accomplished with the use of [employer] voice recognition software, which is prone to medical misidentifications and grammatical errors. This are unintentional and the practitioner does try to identify and correct these, but some could still be present. Please do not hesitate to contact practitioner for clarification. 12/12/2024 Chronic constipation (ICD-10 - K59.09) Angela is a 43-year-old female with past medical history of gastric sleeve surgery in 2020 who presents for urgent visit regarding ongoing [...] our visit, she got a call from [facility] where she previously had gastric sleeve done and was advised to text the portal regarding her symptoms. Advised patient to follow-up with [facility] for likely endoscopy for further evaluation. Differential [...] Dictation was accomplished with the use of [employer] voice recognition software, which is prone to medical misidentifications and grammatical errors. This are unintentional and the practitioner does try to identify and correct these, but some could still be present. Please do not hesitate to contact practitioner for clarification. 10/16/2024 Essential (primary) hypertension (ICD-10 - I10) Acute Concerns/Problem List: 10/16/2024 Stop bang was diagnostic, will get a home sleep study BMI of 32 class I obesity Discussed weight loss options May be interested in formal consultation Discussed plant sterols, red yeast rice and omega-3 to lower cholesterol Continue antihypertensive - Lisinopril Continue with psychiatric provider for anxiety/ depression 3 mo follow-up Of note, some information is being carried forward from prior records for informational purposes only and is being cited so that efficiency, safety and quality of the patient's care is not compromised This note was prepared using voice recognition software and direct typing Please excuse inadvertent vascular tech or typing errors, or uncorrected word substitutions Although every attempt has been made by the provider to proofread this document, occasional misspellings and typographical errors may still be present Due to the previous pandemic, and the use of personal protective equipment (PPE) This may decrease voice recognition accuracy Inadvertent vascular tech errors may occur 10/16/2024 Annual physical exam (ICD-10 - Z00.00) Acute Concerns/Problem List: 10/16/2024 Stop anthony was diagnostic, will get a home sleep study BMI of 32 class I obesity Discussed weight loss options May be interested in formal consultation Discussed plant sterols, red yeast rice and omega-3 to lower cholesterol Continue antihypertensive - Lisinopril Continue with psychiatric provider for anxiety/ depression 3 mo follow-up Of note, some information is being carried forward from prior records for informational purposes only and is being cited so that efficiency, safety and quality of the patient's care is not compromised This note was prepared using voice recognition software and direct typing Please excuse inadvertent vascular tech or typing errors, or uncorrected word substitutions Although every attempt has been made by the provider to proofread this document, occasional misspellings and typographical errors may still be present Due to the previous pandemic, and the use of personal protective equipment (PPE) This may decrease voice recognition accuracy Inadvertent vascular tech errors may occur 10/16/2024 Hyperlipidemia, unspecified hyperlipidemia type (ICD-10 - E78.5) Acute Concerns/Problem List: 10/16/2024 Ambrocio cruz was diagnostic, will get a home sleep study BMI of 32 class I obesity Discussed weight loss options May be interested in formal consultation Discussed plant sterols, red yeast rice and omega-3 to lower cholesterol Continue antihypertensive - Lisinopril Continue with psychiatric provider for anxiety/ depression 3 mo follow-up Of note, some information is being carried forward from prior records for informational purposes only and is being cited so that efficiency, safety and quality of the patient's care is not compromised This note was prepared using voice recognition software and direct typing Please excuse inadvertent vascular tech or typing errors, or uncorrected word substitutions Although every attempt has been made by the provider to proofread this document, occasional misspellings and typographical errors may still be present Due to the previous pandemic, and the use of personal protective equipment (PPE) This may decrease voice recognition accuracy Inadvertent vascular tech errors may occur 12/12/2024 Nausea (ICD-10 - R11.0) Angela is a 43-year-old female with past medical [...] our visit, she got a call from [facility] where she previously had gastric sleeve done and was advised to text the portal regarding her symptoms. Advised patient to follow-up with [facility] for likely endoscopy for further evaluation. Differential [...] Dictation was accomplished with the use of [employer] voice recognition software, which is prone to medical misidentifications and grammatical errors. This are unintentional and the practitioner does try to identify and correct these, but some could still be present. Please do not hesitate to contact practitioner for clarification. 12/06/2024 Nausea (ICD-10 - R11.0) Nora is a 43-year-old female with past medical history significant for constipation, ovarian cyst, and gastric bypass surgery in 2019 who presents for urgent visit regarding abdominal pain, constipation, and nausea for approximately 1 week. Most recent bowel movement yesterday and was normal for her. She has been utilizing MiraLAX twice daily and Colace daily. Reports associated chills/sweats but denies fever, vomiting, hematochezia, urinary symptoms. Abdominal exam is soft, nondistended, diffusely tender, worse in left lower quadrant. Hypoactive bowel sounds. #Abdominal pain: Differential is broad, includes stool burden, IBS-C, diverticulitis, , ovarian cyst. Plan for CBC, CMP, ESR, CRP, UA, test. Plan for CT abdomen and pelvis with contrast. Patient advised to report to the ER if she develops fever or chills, presyncope, lightheadedness, or worsening abdominal pain. Plan to follow-up in 2 weeks to discuss treatment of underlying constipation, sooner as needed. #Constipation: She has been utilizing MiraLAX daily and Colace daily. Went to the ER in June due to constipation. Plan to follow-up in 2 weeks to discuss treatment, such as Linzess. All questions have been answered to patient's satisfaction. Patient verbalized understanding of diagnosis and treatments explained. Advised to call sooner prior to next visit it any questions/concerns arise. Case discussed with collaborating physician Nirav Dinh who reviewed the assessment and plan. Chart, medications, labs, vital signs reviewed. Dictation was accomplished with the use of [employer] voice recognition software, which is prone to medical misidentifications and grammatical errors. This are unintentional and the practitioner does try to identify and correct these, but some could still be present. Please do not hesitate to contact practitioner for clarification. 06/12/2024 Hyperlipidemia, unspecified hyperlipidemia type (ICD-10 - E78.5) Acute Concerns/Problem List: 06/12/2024 Continue monitoring blood pressure at home Continue antihypertensive - Lisinopril Continue with psychiatric provider for anxiety/ depression Call and schedule weight loss management consult Physical exam 10/2024 _ update labs Order for mammography given to patient Discussed obesity BMI, discussed weight loss options No longer breast-feeding and at some point would want to come in for weight management formal consultation Of note, some information is being carried forward from prior records for informational purposes only and is being cited so that efficiency, safety and quality of the patient's care is not compromised This note was prepared using voice recognition software and direct typing Please excuse inadvertent vascular tech or typing errors, or uncorrected word substitutions Although every attempt has been made by the provider to proofread this document, occasional misspellings and typographical errors may still be present Due to the previous pandemic, and the use of personal protective equipment (PPE) This may decrease voice recognition accuracy Inadvertent vascular tech errors may occur 03/22/2024 Depression, unspecified (ICD-10 - F32.A) #Hypertension. Blood pressure not at goal. Goal less than 130/80. She is now done breast-feeding. Will discontinue nifedipine and start lisinopril 10 mg daily. Reviewed risk benefits adverse effects of medication in detail with patient. She is actively working on healthy diet and regular exercise. Will plan to recheck BMP in 4 to 6 weeks and follow-up in the office as scheduled in April. Follow-up sooner with any concerns. #Anxiety and depression. She has had increased anxiety since the of her daughter a year ago. She would like to try medication options at this time. Will start low-dose sertraline. Discussed may need to titrate dose. Reviewed risk benefits adverse effects to monitor for. She has a good support system at home and is actively looking for a therapist. Follow-up in 6 weeks sooner with any concerns. Case discussed with collaborating physician Carloz Dinh who reviewed the assessment and plan. Chart, medications, labs, vital signs reviewed. Dictation was accomplished with the use of [employer] voice recognition software, prone to medical misidentifications and grammatical errors. This is unintentional and the practitioner does try to identify and correct these, but some could still be present. Please do not hesitate to contact practitioner for clarification. All questions answered to patients satisfaction. Patient verbalized understanding of diagnosis and treatments explained. To call sooner prior to next visit it any questions/concerns arise. 01/06/2024 Chest congestion (ICD-10 - R09.89) Angela is a 43-year-old female with history of headache, hemorrhoids, anxiety, depression who presents the office today for urgent care visit for flulike symptoms including sore throat, hoarse voice, cough, chest congestion, and headache that began on Wednesday. Reports recent sick contacts including her son who is sick 3 weeks ago with sore throat and cough as well as her partner who also became sick with similar symptoms. Reports some associated nausea but denies fever, chills, chest pain, difficulty breathing, vomiting, diarrhea, dizziness, or weakness. Can tolerate food and drink. Has been using Tylenol, throat lozenges, cough drops, and drinking warm water with honey. On physical exam patient is well-appearing and in no acute distress. Cardiopulmonary exam unremarkable. Small right-sided lymphadenopathy appreciated in submaxillary region. Oropharynx is nonerythematous and nonedematous without tonsillar hypertrophy or exudates. Viral swab obtained in the office which resulted negative for flu, COVID, and RSV. Patient updated to these results. Discussed that symptoms likely due to viral infection. Discussed use of ibuprofen for sore throat and use of medications like Robitussin to help manage cough and chest congestion. Advised the patient should avoid NyQuil or DayQuil at this time as she is breast-feeding. She should continue conservative measures including rest, continuing good nutrition, increasing fluid intake, using throat lozenges or cough drops, and having warm water or tea with honey. Advised that if symptoms do not improve the rest of the week and by the end of the weekend may consider antibiotics. May consider chest x-ray if she develops shortness of breath. Advised to return to the office sooner if she does not develop resolution of symptoms. Educated to go to the emergency department if she develops fever unable to be broken by antipyretic medications, chest pain, difficulty breathing, intractable vomiting or diarrhea, dizziness, or weakness. Patient demonstrates understanding. All patient questions answered at this time. All questions have been answered to patient's satisfaction. Patient verbalized understanding of diagnosis and treatments explained. Advised to call sooner prior to next visit it any questions/concerns arise. Case discussed with collaborating physician Nirav Dinh who reviewed the assessment and plan. Chart, medications, labs, vital signs reviewed. Dictation was accomplished with the use of [employer] voice recognition software, which is prone to medical misidentifications and grammatical errors. This are unintentional and the practitioner does try to identify and correct these, but some could still be present. Please do not hesitate to contact practitioner for clarification. 01/06/2024 Tension headache (ICD-10 - G44.209) Angela is a 43-year-old female with history of headache, hemorrhoids, anxiety, depression who presents the office today for urgent care visit for flulike symptoms including sore throat, hoarse voice, cough, chest congestion, and headache that began on Wednesday. Reports recent sick contacts including her son who is sick 3 weeks ago with sore throat and cough as well as her partner who also became sick with similar symptoms. Reports some associated nausea but denies fever, chills, chest pain, difficulty breathing, vomiting, diarrhea, dizziness, or weakness. Can tolerate food and drink. Has been using Tylenol, throat lozenges, cough drops, and drinking warm water with honey. On physical exam patient is well-appearing and in no acute distress. Cardiopulmonary exam unremarkable. Small right-sided lymphadenopathy appreciated in submaxillary region. Oropharynx is nonerythematous and nonedematous without tonsillar hypertrophy or exudates. Viral swab obtained in the office which resulted negative for flu, COVID, and RSV. Patient updated to these results. Discussed that symptoms likely due to viral infection. Discussed use of ibuprofen for sore throat and use of medications like Robitussin to help manage cough and chest congestion. Advised the patient should avoid NyQuil or DayQuil at this time as she is breast-feeding. She should continue conservative measures including rest, continuing good nutrition, increasing fluid intake, using throat lozenges or cough drops, and having warm water or tea with honey. Advised that if symptoms do not improve the rest of the week and by the end of the weekend may consider antibiotics. May consider chest x-ray if she develops shortness of breath. Advised to return to the office sooner if she does not develop resolution of symptoms. Educated to go to the emergency department if she develops fever unable to be broken by antipyretic medications, chest pain, difficulty breathing, intractable vomiting or diarrhea, dizziness, or weakness. Patient demonstrates understanding. All patient questions answered at this time. All questions have been answered to patient's satisfaction. Patient verbalized understanding of diagnosis and treatments explained. Advised to call sooner prior to next visit it any questions/concerns arise. Case discussed with collaborating physician Nirav Dinh who reviewed the assessment and plan. Chart, medications, labs, vital signs reviewed. Dictation was accomplished with the use of [employer] voice recognition software, which is prone to medical misidentifications and grammatical errors. This are unintentional and the practitioner does try to identify and correct these, but some could still be present. Please do not hesitate to contact practitioner for clarification. 12/06/2024 Encounter for examination of blood pressure without abnormal findings (ICD-10 - Z01.30) Nora is a 43-year-old female with past medical history significant for constipation, ovarian cyst, and gastric bypass surgery in 2019 who presents for urgent visit regarding abdominal pain, constipation, and nausea for approximately 1 week. Most recent bowel movement yesterday and was normal for her. She has been utilizing MiraLAX twice daily and Colace daily. Reports associated chills/sweats but denies fever, vomiting, hematochezia, urinary symptoms. Abdominal exam is soft, nondistended, diffusely tender, worse in left lower quadrant. Hypoactive bowel sounds. #Abdominal pain: Differential is broad, includes stool burden, IBS-C, diverticulitis, , ovarian cyst. Plan for CBC, CMP, ESR, CRP, UA, test. Plan for CT abdomen and pelvis with contrast. Patient advised to report to the ER if she develops fever or chills, presyncope, lightheadedness, or worsening abdominal pain. Plan to follow-up in 2 weeks to discuss treatment of underlying constipation, sooner as needed. #Constipation: She has been utilizing MiraLAX daily and Colace daily. Went to the ER in June due to constipation. Plan to follow-up in 2 weeks to discuss treatment, such as Linzess. All questions have been answered to patient's satisfaction. Patient verbalized understanding of diagnosis and treatments explained. Advised to call sooner prior to next visit it any questions/concerns arise. Case discussed with collaborating physician Nirav Dinh who reviewed the assessment and plan. Chart, medications, labs, vital signs reviewed. Dictation was accomplished with the use of [employer] voice recognition software, which is prone to medical misidentifications and grammatical errors. This are unintentional and the practitioner does try to identify and correct these, but some could still be present. Please do not hesitate to contact practitioner for clarification. 06/12/2024 Family history of breast cancer (ICD-10 - Z80.3) Acute Concerns/Problem List: 06/12/2024 Continue monitoring blood pressure at home Continue antihypertensive - Lisinopril Continue with psychiatric provider for anxiety/ depression Call and schedule weight loss management consult Physical exam 10/2024 _ update labs Order for mammography given to patient Discussed obesity BMI, discussed weight loss options No longer breast-feeding and at some point would want to come in for weight management formal consultation Of note, some information is being carried forward from prior records for informational purposes only and is being cited so that efficiency, safety and quality of the patient's care is not compromised This note was prepared using voice recognition software and direct typing Please excuse inadvertent vascular tech or typing errors, or uncorrected word substitutions Although every attempt has been made by the provider to proofread this document, occasional misspellings and typographical errors may still be present Due to the previous pandemic, and the use of personal protective equipment (PPE) This may decrease voice recognition accuracy Inadvertent vascular tech errors may occur 10/16/2024 Family history of breast cancer (ICD-10 - Z80.3) Acute Concerns/Problem List: 10/16/2024 Stop bang was diagnostic, will get a home sleep study BMI of 32 class I obesity Discussed weight loss options May be interested in formal consultation Discussed plant sterols, red yeast rice and omega-3 to lower cholesterol Continue antihypertensive - Lisinopril Continue with psychiatric provider for anxiety/ depression 3 mo follow-up Of note, some information is being carried forward from prior records for informational purposes only and is being cited so that efficiency, safety and quality of the patient's care is not compromised This note was prepared using voice recognition software and direct typing Please excuse inadvertent vascular tech or typing errors, or uncorrected word substitutions Although every attempt has been made by the provider to proofread this document, occasional misspellings and typographical errors may still be present Due to the previous pandemic, and the use of personal protective equipment (PPE) This may decrease voice recognition accuracy Inadvertent vascular tech errors may occur 12/12/2024 Adnexal cyst (ICD-10 - N94.9) Angela is a 43-year-old female with past medical [...] our visit, she got a call from [facility] where she previously had gastric sleeve done and was advised to text the portal regarding her symptoms. Advised patient to follow-up with [facility] for likely endoscopy for further [...] Dictation was accomplished with the use of [employer] voice recognition software, which is prone to medical misidentifications and grammatical errors. This are unintentional and the practitioner does try to identify and correct these, but some could still be present. Please do not hesitate to contact practitioner for clarification. 10/16/2024 Other obesity due to excess calories (ICD-10 - E66.09) Acute Concerns/Problem List: 10/16/2024 Stop bang was diagnostic, will get a home sleep study BMI of 32 class I obesity Discussed weight loss options May be interested in formal consultation Discussed plant sterols, red yeast rice and omega-3 to lower cholesterol Continue antihypertensive - Lisinopril Continue with psychiatric provider for anxiety/ depression 3 mo follow-up Of note, some information is being carried forward from prior records for informational purposes only and is being cited so that efficiency, safety and quality of the patient's care is not compromised This note was prepared using voice recognition software and direct typing Please excuse inadvertent vascular tech or typing errors, or uncorrected word substitutions Although every attempt has been made by the provider to proofread this document, occasional misspellings and typographical errors may still be present Due to the previous pandemic, and the use of personal protective equipment (PPE) This may decrease voice recognition accuracy Inadvertent vascular tech errors may occur 12/12/2024 S/P gastric sleeve procedure (ICD-10 - Z90.3) Angela is a 43-year-old female with past medical [...] our visit, she got a call from [facility] where she previously had gastric sleeve done and was advised to text the portal regarding her symptoms. Advised patient to follow-up with [facility] for likely endoscopy for further evaluation. Differential [...] Dictation was accomplished with the use of [employer] voice recognition software, which is prone to medical misidentifications and grammatical errors. This are unintentional and the practitioner does try to identify and correct these, but some could still be present. Please do not hesitate to contact practitioner for clarification. 06/12/2024 Other obesity due to excess calories (ICD-10 - E66.09) Acute Concerns/Problem List: 06/12/2024 Continue monitoring blood pressure at home Continue antihypertensive - Lisinopril Continue with psychiatric provider for anxiety/ depression Call and schedule weight loss management consult Physical exam 10/2024 _ update labs Order for mammography given to patient Discussed obesity BMI, discussed weight loss options No longer breast-feeding and at some point would want to come in for weight management formal consultation Of note, some information is being carried forward from prior records for informational purposes only and is being cited so that efficiency, safety and quality of the patient's care is not compromised This note was prepared using voice recognition software and direct typing Please excuse inadvertent vascular tech or typing errors, or uncorrected word substitutions Although every attempt has been made by the provider to proofread this document, occasional misspellings and typographical errors may still be present Due to the previous pandemic, and the use of personal protective equipment (PPE) This may decrease voice recognition accuracy Inadvertent vascular tech errors may occur 10/16/2024 BMI 32.0-32.9,adult (ICD-10 - Z68.32) Acute Concerns/Problem List: 10/16/2024 Stop bang was diagnostic, will get a home sleep study BMI of 32 class I obesity Discussed weight loss options May be interested in formal consultation Discussed plant sterols, red yeast rice and omega-3 to lower cholesterol Continue antihypertensive - Lisinopril Continue with psychiatric provider for anxiety/ depression 3 mo follow-up Of note, some information is being carried forward from prior records for informational purposes only and is being cited so that efficiency, safety and quality of the patient's care is not compromised This note was prepared using voice recognition software and direct typing Please excuse inadvertent vascular tech or typing errors, or uncorrected word substitutions Although every attempt has been made by the provider to proofread this document, occasional misspellings and typographical errors may still be present Due to the previous pandemic, and the use of personal protective equipment (PPE) This may decrease voice recognition accuracy Inadvertent vascular tech errors may occur 06/12/2024 Body mass index [BMI] 30.0-30.9, adult (ICD-10 - Z68.30) Acute Concerns/Problem List: 06/12/2024 Continue monitoring blood pressure at home Continue antihypertensive - Lisinopril Continue with psychiatric provider for anxiety/ depression Call and schedule weight loss management consult Physical exam 10/2024 _ update labs Order for mammography given to patient Discussed obesity BMI, discussed weight loss options No longer breast-feeding and at some point would want to come in for weight management formal consultation Of note, some information is being carried forward from prior records for informational purposes only and is being cited so that efficiency, safety and quality of the patient's care is not compromised This note was prepared using voice recognition software and direct typing Please excuse inadvertent vascular tech or typing errors, or uncorrected word substitutions Although every attempt has been made by the provider to proofread this document, occasional misspellings and typographical errors may still be present Due to the previous pandemic, and the use of personal protective equipment (PPE) This may decrease voice recognition accuracy Inadvertent vascular tech errors may occur 12/12/2024 Encounter for examination of blood pressure with abnormal findings (ICD-10 - Z01.31) Angela is a 43-year-old female with past medical [...] our visit, she got a call from [facility] where she previously had gastric sleeve done and was advised to text the portal regarding her symptoms. Advised patient to follow-up with [facility] for likely endoscopy for further [...] Dictation was accomplished with the use of [employer] voice recognition software, which is prone to medical misidentifications and grammatical errors. This are unintentional and the practitioner does try to identify and correct these, but some could still be present. Please do not hesitate to contact practitioner for clarification. 10/16/2024 Anxiety disorder, unspecified (ICD-10 - F41.9) Acute Concerns/Problem List: 10/16/2024 Stop bang was diagnostic, will get a home sleep study BMI of 32 class I obesity Discussed weight loss options May be interested in formal consultation Discussed plant sterols, red yeast rice and omega-3 to lower cholesterol Continue antihypertensive - Lisinopril Continue with psychiatric provider for anxiety/ depression 3 mo follow-up Of note, some information is being carried forward from prior records for informational purposes only and is being cited so that efficiency, safety and quality of the patient's care is not compromised This note was prepared using voice recognition software and direct typing Please excuse inadvertent vascular tech or typing errors, or uncorrected word substitutions Although every attempt has been made by the provider to proofread this document, occasional misspellings and typographical errors may still be present Due to the previous pandemic, and the use of personal protective equipment (PPE) This may decrease voice recognition accuracy Inadvertent vascular tech errors may occur 06/12/2024 Anxiety disorder, unspecified (ICD-10 - F41.9) Acute Concerns/Problem List: 06/12/2024 Continue monitoring blood pressure at home Continue antihypertensive - Lisinopril Continue with psychiatric provider for anxiety/ depression Call and schedule weight loss management consult Physical exam 10/2024 _ update labs Order for mammography given to patient Discussed obesity BMI, discussed weight loss options No longer breast-feeding and at some point would want to come in for weight management formal consultation Of note, some information is being carried forward from prior records for informational purposes only and is being cited so that efficiency, safety and quality of the patient's care is not compromised This note was prepared using voice recognition software and direct typing Please excuse inadvertent vascular tech or typing errors, or uncorrected word substitutions Although every attempt has been made by the provider to proofread this document, occasional misspellings and typographical errors may still be present Due to the previous pandemic, and the use of personal protective equipment (PPE) This may decrease voice recognition accuracy Inadvertent vascular tech errors may occur 06/12/2024 Breast cancer screening by mammogram (ICD-10 - Z12.31) Acute Concerns/Problem List: 06/12/2024 Continue monitoring blood pressure at home Continue antihypertensive - Lisinopril Continue with psychiatric provider for anxiety/ depression Call and schedule weight loss management consult Physical exam 10/2024 _ update labs Order for mammography given to patient Discussed obesity BMI, discussed weight loss options No longer breast-feeding and at some point would want to come in for weight management formal consultation Of note, some information is being carried forward from prior records for informational purposes only and is being cited so that efficiency, safety and quality of the patient's care is not compromised This note was prepared using voice recognition software and direct typing Please excuse inadvertent vascular tech or typing errors, or uncorrected word substitutions Although every attempt has been made by the provider to proofread this document, occasional misspellings and typographical errors may still be present Due to the previous pandemic, and the use of personal protective equipment (PPE) This may decrease voice recognition accuracy Inadvertent vascular tech errors may occur 10/16/2024 Encounter for examination of blood pressure without abnormal findings (ICD-10 - Z01.30) Acute Concerns/Problem List: 10/16/2024 Stop bang was diagnostic, will get a home sleep study BMI of 32 class I obesity Discussed weight loss options May be interested in formal consultation Discussed plant sterols, red yeast rice and omega-3 to lower cholesterol Continue antihypertensive - Lisinopril Continue with psychiatric provider for anxiety/ depression 3 mo follow-up Of note, some information is being carried forward from prior records for informational purposes only and is being cited so that efficiency, safety and quality of the patient's care is not compromised This note was prepared using voice recognition software and direct typing Please excuse inadvertent vascular tech or typing errors, or uncorrected word substitutions Although every attempt has been made by the provider to proofread this document, occasional misspellings and typographical errors may still be present Due to the previous pandemic, and the use of personal protective equipment (PPE) This may decrease voice recognition accuracy Inadvertent vascular tech errors may occur 05/11/2024 Acute Concerns/Problem List: 05/11/2024 Continue monitoring blood [...] software and direct typing Please excuse inadvertent vascular tech or typing errors, or uncorrected word substitutions Although every attempt has been made by the provider to proofread this document, occasional misspellings and typographical errors may still be present Due to the previous pandemic, and the use of personal protective equipment (PPE) This may decrease voice recognition accuracy Inadvertent vascular tech errors may occur Plan Of Treatment Pending Test Test Name Order Date Mammogram 06/12/2024 Test, Urine 12/06/2024 MAMMOGRAM, SCREENING 11/25/2020 MAMMOGRAM, SCREENING 06/07/2023 CT Abdomen and Pelvis 12/06/2024 BASIC METABOLIC PANEL 03/22/2024 CBC (COMPLETE BLOOD COUNT) WITH DIFF 09/2023 COMPREHENSIVE METABOLIC PANEL 06/07/2023 HEMOGLOBIN A1C 06/07/2023 LIPID PANEL 06/07/2023 TSH 06/07/2023 XR Knee 3 Views RT 02/08/2024 XR L-Spine 2-3 Views 05/06/2022 CARDIO CRP- HIGH SENSITIVE 12/06/2024 ESR 12/06/2024 LIPID PANEL, STANDARD 10/16/2024 LIPID PANEL, STANDARD 06/12/2024 COMPREHENSIVE METABOLIC PANEL 06/12/2024 COMPREHENSIVE METABOLIC PANEL 12/06/2024 CBC (INCLUDES DIFF/PLT) 12/06/2024 CBC (INCLUDES DIFF/PLT) 06/12/2024 URINALYSIS, COMPLETE 06/12/2024 URINALYSIS, COMPLETE 06/07/2023 URINALYSIS, COMPLETE 12/06/2024 HEMOGLOBIN A1c 06/12/2024 TSH W/REFLEX TO FT4 06/12/2024 VITAMIN D,25-OH,TOTAL,IA 06/12/2024 VITAMIN D, 1,25 DIHYDROXY LC/MS/MS 06/06 Future Test Test Name Order Date 25OH VITAMIN D 01/06/2021 CBC (COMPLETE BLOOD COUNT) 01/06/2021 COMPREHENSIVE METABOLIC PANEL 01/06/2021 LIPID PANEL 01/06/2021 TSH 01/06/2021 COMPLETE URINALYSIS 01/06/2021 25OH VITAMIN D 01/07/2022 CBC (COMPLETE BLOOD COUNT) 01/07/2022 COMPREHENSIVE METABOLIC PANEL 01/07/2022 LIPID PANEL 01/07/2022 TSH 01/07/2022 COMPLETE URINALYSIS 01/07/2022 Next Appt Details Provider Name:Snow vang, 12/20/2024 03:00:00 PM, [address], [id number], Provider Name:JULIANNA AUSTIN, 01/16/2025 10:00:00 AM, [address], [id number], Insurance Providers Payer Name Payer Address Payer Phone Subscriber Number Group Number Insured Name Patient Relationship to Insured Coverage Start Date Coverage End Date [facility] [address] [place] [address] [id number] ANGELA RANDALL Self - patient is the insured Medical (General) History Medical History History ICD Code headache hemorrhoids anxiety depression weight gain/loss Surgical History Surgery Date(Month/Year) gastric bypass
== END 2024-12-15 09:29 | disposition home or self-care (01) ==
LOC: HO.US 09:28
PROVIDERS: Visit Provider Surgery
DX: R10.9 Unspecified abdominal pain (principal)
CPT/HCPCS: 76700; 76981

== ENCOUNTER → 2024-12-15 09:30 | Outpatient (BNV) | payer OTHER, SELFPAY | PROVIDERS: Visit Provider Radiology Diagnostic Radiology | DX: R16.0 Hepatomegaly, not elsewhere classified (principal) | CPT/HCPCS: 76700 ==